=== PATIENT | female | born 1965 | race Caucasian/White ===

== ENCOUNTER → 2017-01-07 14:25 | Outpatient (CLI) | payer OTHER ==
[2016-10-28 14:22] VITALS: BMI 30.4
[~2017-01-07 14:25] MED LIST: BENZONATATE200 MG PO; BROVANA15 MCG/2 M INH; COREG 3.1253.125 MG PO; DIFLUCAN100 MG PO; FLORAJEN3 CAPS460 MG PO; FLUTICASONE PRO16 GM NASAL; HYDROCODONE-APA1 TAB PO; IPRAT-ALBUT 0.5-3 ML INH; LEVAQUIN500 MG PO; LEVAQUIN750 MG PO; LYRICA150 MG PO; LYRICA75 MG PO; MUCINEX D1 TAB.SR . PO; MUCINEX DM ER1 EAC1 PO; NYSTATIN ORAL SU5 ML PO; ONDANSETRON4 MG/2 M3 IV; OXYCONTIN10 MG PO; PEPCID20 MG PO; PHENERGAN25 M1 PO; PREDNISONE10 MG PO; PREDNISONE20 MG PO; PROAIR HFA8.5 GM INH; PROVENTIL HFA6.7 GM INH; PULMICORT0.5 MG/21 UPD; SINGULAIR10 MG PO; SOMA350 MG PO; STERAPRED DS 1210 MG PO; TUSSIONEX PENN473 ML PO; VIBRAMYCIN 100100 MG PO; XANAX1 MG PO; ZPAK PO
== END | disposition home or self-care (01) ==
LOC: D.MAMMO 08:30
DX: N63 Unspecified lump in breast (principal)

== ENCOUNTER 2017-02-25 22:27 | Inpatient (IN) | payer OTHER ==
[~2017-02-25] VITALS: Ht 165.1 cm; Wt 83.0 kg
--- NOTE | ~2017-02-25 | CN ---
PATIENT NAME:JILL LONGORIA MEDICAL RECORD: [id number] : 65 LOCATION:D.[id number] ADMIT DATE: 02/26/17 ACCOUNT: [id number] CONSULTING PHYSICIAN: MARAH LEMA MD REFERRING PHYSICIAN: BETI GREEN MD DATE OF CONSULTATION: 02/26/2017 Consultation Note CONSULT REQUESTING PHYSICIAN: Dr. Beti Green. REASON FOR CONSULTATION: Acute exacerbation of chronic obstructive pulmonary disease, hemoptysis. HISTORY OF PRESENT ILLNESS: Ms. Longoria is a 52-year-old female who has a history of COPD and asthma, IgG deficiency, and kind of sick for the last few days, she was coughing. She was wheezing. She has shortness of breath. The cough is productive with some bloody sputum. She does not have any blood in her sputum since yesterday. Denies any fever and chill. There are no night sweats. REVIEW OF SYSTEMS: Mainly in the history of present illness. PAST MEDICAL HISTORY: 1. Neuropathy. 2. Seizure disorder. 3. Bulging disk, chronic backache. 4. Congestive heart failure. 5. Coronary artery disease. 6. History of syncopal episode. 7. Asthma. 8. Chronic obstructive pulmonary disease. 9. Emphysema. 10. Cervical cancer. PAST SURGICAL HISTORY: Back surgery, , hysterectomy, tube dilated to kidney and bladder. ALLERGIES: SHE IS ALLERGIC TO PENICILLIN, AMPICILLIN, SULFA, TRAMADOL AND TRIMETHOPRIM. MEDICATIONS: On [employer] was reviewed. PERSONAL AND SOCIAL HISTORY: Probably, the patient was still continues to smoke. She is a nondrinker. FAMILY HISTORY: Noncontributory. PHYSICAL EXAMINATION: GENERAL: The patient is now lying comfortably. She is not in acute distress. VITAL SIGNS: The blood pressure 138/80, pulse is 102, respiration is 21, temperature 98.8, SpO2 96% on 2.5 liter nasal cannula. HEENT: Conjunctivae is pink, sclerae nonicteric. NECK: Supple, no JVD. CHEST: The chest excursion is minimal on both sides. There is a prolonged expiration with wheezing. CONSULT REPORT [id number] JILL LONGORIA HEART: Rhythm regular, normal sound, no murmur. ABDOMEN: Soft, bowel sounds present. No hepatosplenomegaly. RECTAL: Deferred. EXTREMITIES: No cyanosis, no clubbing, no pedal edema. SKIN: The skin is warm, normal turgor. CENTRAL NERVOUS SYSTEM: The patient is awake and alert. There are no obvious cranial nerve abnormality. The gait was not tested. CHEST RADIOGRAPH: There are no acute infiltrate. OTHER LABORATORY DATA: CBC: WBC 3.5, hemoglobin 13.6, hematocrit 41.9, the platelet count is 148. Chemistry: Sodium 143, potassium 3.4, BUN is 11, creatinine 0.5. IMPRESSION: 1. Acute exacerbation of chronic obstructive pulmonary disease. 2. COPD-asthma overlap syndrome. 3. History of IgG deficiency. 4. Tracheobronchitis. 5. Hemoptysis, most likely secondary to tracheobronchitis. 6. Seizure disorder. 7. History of congestive heart failure and coronary artery disease. 8. Tobacco dependence syndrome. RECOMMENDATION: We will start her on Levaquin, methylprednisolone IV, albuterol/ipratropium nebulizer, Brovana and budesonide nebulizer. Continue Singulair, racemic neb p.r.n. Check ANCA and anti-GBM. Followup chest radiograph and labs in the morning. Dr. Green, once again thanks for involving me in the care on Ms. Longoria. TRANSINT:[id number] Voice Confirmation ID: [id number] DOCUMENT ID: [id number] MARAH LEMA MD CC: BETI GREEN MD [id number] DICTATION DATE: 02/26/175 COUNTER ROLLER: 02/27/17 0115 ADM IN [facility] [address] [place] [address]
[~2017-02-25 22:27] MED LIST changes: -LEVAQUIN750 MG PO
[2017-02-25 23:53] LABS: BASOPHILS 0.4 % (0-2); EOSINOPHILS 1.9 % (0-7); HEMATOCRIT 41.8 % (36.0-48.0); HEMOGLOBIN 13.5 g/dL (12-16); IMMATURE GRANULOCYTES 0.2 % (0-5); LYMPHOCYTES 22.9 % (15-50); MCH 29.6 pg (26.0-34.0); MCHC 32.3 g/dL (31.0-37.0); MCV 91.7 fL (80.0-100.0); MEAN PLATELET VOLUME 12.2 fL (7.4-10.4); MONOCYTES 9.6 % (2-11); RBC 4.56 10x6/uL (4.00-5.40); RDW 12.6 % (11.5-14.5); WBC 5.3 10x3/uL (4.8-10.8)
[2017-02-25 23:59] LABS: PLATELET COUNT 155 10x3/uL (130-400)
[2017-02-26] VITALS (7 sets, daily range): BP systolic 110–138; BP diastolic 60–80; Ht 165.1 cm; Wt 83.0 kg
[2017-02-26 00:10] LABS: ALBUMIN 3.2 g/dL (3.4-5.0); ALKALINE PHOSPHATASE 144 U/L (46-116); ALT (SGPT) 18 U/L (10-68); BILIRUBIN - TOTAL 0.24 mg/dL (0.2-1.3); CALC OSMOLALITY 283 mosm/kg (275-300); CALCIUM 9.2 mg/dL (8.5-10.1); CARBON DIOXIDE 33.3 mmol/L (21.0-32.0); CHLORIDE - SERUM 104 mmol/L (98-107); CREATININE - SERUM 0.5 mg/dL (0.6-1.3); POTASSIUM - SERUM 3.4 mmol/L (3.5-5.1); PROTEIN - SERUM 6.4 g/dL (6.4-8.2); SODIUM 143 mmol/L (136-145); UREA NITROGEN 11 mg/dL (7-18); eGFR NON AFRICAN AMERICAN > 90 mL/min (90-120)
[2017-02-26 00:11] LABS: GLUCOSE 94 mg/dL (74-106)
[2017-02-26 02:08] LABS: APPEARANCE CLEAR (CLEAR); BILIRUBIN NEGATIVE (NEGATIVE); COLOR YELLOW (YELLOW); GLUCOSE NEGATIVE (NEGATIVE); KETONE NEGATIVE (NEGATIVE); LEUKOCYTE ESTERASE NEGATIVE (NEGATIVE); NITRITE NEGATIVE (NEGATIVE); PROTEIN NEGATIVE (NEGATIVE); SPECIFIC GRAVITY 1.015 (1.005-1.020); UROBILINOGEN NORMAL (NORMAL)
[2017-02-26 02:11] LABS: UDS - AMPHET NEGATIVE QUAL (NEGATIVE); UDS - BARB NEGATIVE QUAL (NEGATIVE); UDS - BENZO POSITIVE QUAL (NEGATIVE); UDS - COCAINE NEGATIVE QUAL (NEGATIVE); UDS - METH NEGATIVE QUAL (NEGATIVE); UDS - OPIATE POSITIVE QUAL (NEGATIVE); UDS - PCP NEGATIVE QUAL (NEGATIVE); UDS - THC NEGATIVE QUAL (NEGATIVE)
[2017-02-26] MEDS ORDERED: PHENERGAN25 M1 PO (02:52)
[2017-02-26 07:34] LABS: BASOPHILS 0.3 % (0-2); EOSINOPHILS 0 % (0-7); HEMATOCRIT 41.9 % (36.0-48.0); HEMOGLOBIN 13.6 g/dL (12-16); IMMATURE GRANULOCYTES 0.3 % (0-5); LYMPHOCYTES 8.8 % (15-50); MCH 29.6 pg (26.0-34.0); MCHC 32.5 g/dL (31.0-37.0); MCV 91.3 fL (80.0-100.0); MEAN PLATELET VOLUME 12.5 fL (7.4-10.4); MONOCYTES 0.9 % (2-11); NEUTROPHILS 89.7 % (40-80); PLATELET COUNT 148 10x3/uL (130-400); RBC 4.59 10x6/uL (4.00-5.40); RDW 12.6 % (11.5-14.5)
[2017-02-26 07:47] LABS: MAGNESIUM - SERUM 1.8 mg/dL (1.8-2.4); PHOSPHOROUS 3.5 mg/dL (2.5-4.9)
[2017-02-26 07:56] LABS: WBC 3.5 10x3/uL (4.8-10.8)
--- NOTE | 2017-02-27 00:59 | NUR ---
2000)REC'D.IN BED TALKING ON PHONE UPSET BECAUSE WOULDN'T CHGE.PAIN MED BACK TO EVERY 4HRS. INSTEAD OF EVERY 4HR.C/O CHRONIC BACK PAIN.WILL CONTINUE TO MONITOR FOR ANY CHGES. AND FOLLOW CURRENT PLAN OF CARE.
[2017-02-27 04:00] VITALS: BP 122/70
--- NOTE | 2017-02-27 05:35 | NUR ---
PATIENT RESTING IN BED WITH EYES CLOSED. NO VISIBLE SIGNS OF DISTRESS. BED IN LOWEST POSITION AND CALL LIGHT WITHIN REACH.
[2017-02-27 05:50] LABS: BASOPHILS 0.2 % (0-2); EOSINOPHILS 0 % (0-7); HEMATOCRIT 39.3 % (36.0-48.0); HEMOGLOBIN 12.6 g/dL (12-16); IMMATURE GRANULOCYTES 0.2 % (0-5); LYMPHOCYTES 11.4 % (15-50); MCH 29.6 pg (26.0-34.0); MCHC 32.1 g/dL (31.0-37.0); MCV 92.5 fL (80.0-100.0); MEAN PLATELET VOLUME 12.4 fL (7.4-10.4); NEUTROPHILS 82.2 % (40-80); PLATELET COUNT 148 10x3/uL (130-400); RBC 4.25 10x6/uL (4.00-5.40); RDW 12.8 % (11.5-14.5); WBC 4.1 10x3/uL (4.8-10.8)
[2017-02-27 06:43] LABS: ALKALINE PHOSPHATASE 140 U/L (46-116); BILIRUBIN - TOTAL 0.11 mg/dL (0.2-1.3); CALCIUM 8.6 mg/dL (8.5-10.1); CARBON DIOXIDE 32.1 mmol/L (21.0-32.0); CHLORIDE - SERUM 106 mmol/L (98-107); CREATININE - SERUM 0.6 mg/dL (0.6-1.3); PROTEIN - SERUM 6.1 g/dL (6.4-8.2); SODIUM 143 mmol/L (136-145); eGFR NON AFRICAN AMERICAN > 90 mL/min (90-120)
[2017-02-27 06:44] LABS: ALT (SGPT) 58 U/L (10-68); CALC OSMOLALITY 288 mosm/kg (275-300); GLUCOSE 154 mg/dL (74-106); POTASSIUM - SERUM 4.3 mmol/L (3.5-5.1); UREA NITROGEN 14 mg/dL (7-18)
--- NOTE | 2017-02-27 07:56 | NUR ---
PATIENT STATED "I FEEL WORSE THEN I DID WHEN I CAME IN?" I STATED "WHAT DO YOU MEAN? ARE YOU FEELING MORE SHORT OF BREATH OR WHAT?" SHE STATED "MY LUNGS HURT WORSE. THE DOCTOR TOLD ME HE WAS GOING TO CHANGE MY PAIN MEDICATION TO EVERY 4 HOURS LIKE I TAKE IT AT HOME, BUT HE CHANGED IT TO EVERY 6 HOURS. BY THE TIME 6 HOURS IS UP MY PAIN IS SO BAD I AM CRYING BY THAT POINT. HE EVEN DISCONTINUED MY XANAX. I CAME HERE TO GET BETTER NOT WORSE." ADMINISTERED NORCO PER ORDER. TOLD PATIENT TO DISCUSS HER CONCERNS WITH THE DOCTOR WHEN HE SEES HER TODAY. PATIENT VERBALIZED UNDERSTANDING AND AGREED. BED IN LOWEST POSITION, CALL LIGHT IN REACH. BED RAILS UP X'S 2. PATIENT IS RECIEVING OXYGEN VIA NASAL CANNULA. NO SIGNS OF DISTRESS NOTED.
[2017-02-27 09:45] VITALS: BP 101/54
[2017-02-27 16:55] VITALS: BP 111/52
[2017-02-27 20:00] VITALS: BP 140/64
--- NOTE | 2017-02-27 20:03 | NUR ---
Received patient up in room, up to bathroom, no voiced complaints at this time. Oxygen on @3L/min via nasal cannula. PIV lower left arm is SL. SCDs off at this time due to patient being out of bed.
--- NOTE | 2017-02-27 21:41 | NUR ---
Given [place] 10-325mg po PRN on request for pain rated 10/10 in back (states had back surgeries in the past), both legs and lungs. States it hurts "so much when I cough". Complaining that her medications were changed especially her analgesics, "I didn't come here for detox, I came here to get better."
[2017-02-28] VITALS: BP 115/62
--- NOTE | 2017-02-28 01:46 | NUR ---
Given [place] tab and Klonopin PRNs for 10/10 pain in same areas as last charting and for anxiety and to aid to get to sleep. As soon as she took these pills she called out complaining that the Klonopin is causing her tongue to itch. Encouraged to drink fluids, swish in her mouth and then swallow, pt to report any increase in symptoms and will monitor for any changes.
--- NOTE | 2017-02-28 02:20 | NUR ---
Spoke to patient and the itchiness of her tongue has subsided. "Maybe I let the klonopin melt in my mouth before I swallowed it."
[2017-02-28 04:00] VITALS: BP 135/63
--- NOTE | 2017-02-28 04:15 | NUR ---
Resting quietly, respirations easy and regular, no furthur tongue itching.
[2017-02-28 06:10] LABS: BASOPHILS 0 % (0-2); EOSINOPHILS 0 % (0-7); HEMATOCRIT 39.4 % (36.0-48.0); HEMOGLOBIN 12.4 g/dL (12-16); IMMATURE GRANULOCYTES 0.5 % (0-5); LYMPHOCYTES 11.9 % (15-50); MCH 29.7 pg (26.0-34.0); MCHC 31.5 g/dL (31.0-37.0); MCV 94.3 fL (80.0-100.0); NEUTROPHILS 82.6 % (40-80); PLATELET COUNT 150 10x3/uL (130-400); RBC 4.18 10x6/uL (4.00-5.40); RDW 12.9 % (11.5-14.5)
[2017-02-28 06:24] LABS: ALKALINE PHOSPHATASE 120 U/L (46-116); CALC OSMOLALITY 284 mosm/kg (275-300); CALCIUM 8.5 mg/dL (8.5-10.1); CARBON DIOXIDE 31.6 mmol/L (21.0-32.0); CHLORIDE - SERUM 106 mmol/L (98-107); CREATININE - SERUM 0.5 mg/dL (0.6-1.3); GLUCOSE 126 mg/dL (74-106); POTASSIUM - SERUM 4.2 mmol/L (3.5-5.1); PROTEIN - SERUM 5.8 g/dL (6.4-8.2); SODIUM 142 mmol/L (136-145); UREA NITROGEN 12 mg/dL (7-18); eGFR NON AFRICAN AMERICAN > 90 mL/min (90-120)
[2017-02-28 06:25] LABS: ALT (SGPT) 42 U/L (10-68); BILIRUBIN - TOTAL 0.05 mg/dL (0.2-1.3)
--- NOTE | 2017-02-28 06:55 | NUR ---
Given [place] tab for pain relief (back,legs,lungs,chest region) as requested.
[2017-02-28 08:31] VITALS: BP 123/60
--- NOTE | 2017-02-28 08:31 | NUR ---
PT ASSESSMENT [id number] PT AWAKE AND ALERT ORINETED X 3 LUNGS TIGHT WITH INSPIRATORY WHEEZING NOTED BSA X 4 QUADS. PT STATES THAT SHE IS " PISSED OFF AT HER MD" BECAUSE I DIDNT GET HERE TO DETOX I WANT MY MEDS
--- NOTE | 2017-02-28 11:14 | NUR ---
PT AOX4 RESP EVEN AND NONLABORED PT HERE FOR HEMOPTOSIS AND PNUEMONIA. IV ANTIBIOTICS AND FLUID TO IV IN LEFT FOREARM THAT IS PATENT AND INTACT PT DENIES PAIN AT THIS TIME. SRX2 CALL LIGHT WITHIN REACH AND BED AT LOWEST POSITION WILL CONTINUE TO MONITOR
[2017-02-28 11:39] VITALS: BP 129/60
--- NOTE | 2017-02-28 12:12 | NUR ---
Patient Name: JILL LONGORIA Admission Status: ER Accout number: [id number] Admission Date: 02-26-2017 : 1965 Admission Diagnosis: Attending: BEKAH Current LOS: 2 Anticipated DC Date: 03-03-2017 Planned Disposition: Home Primary Insurance: Discharge Planning Comments: CM MET WITH PATIENT REGARDING D/C NEEDS AND PLANS. PATIENT STATED SHE LIVES WITH HER SPOUSE (ELDA) AND HE WILL DRIVE HER HOME AT DISCHARGE. PATIENTS SPOUSE STATED SHE HAS 7 STEPS TO ENTER HER HOME AND NO STAIRS INSIDE. PATIENT IS INDEPENDENT WITH HER CARE AND HAS OXYGEN 3L, PORT O2, CANE, SHOWER CHAIR, NEBULIZER, AND WALKER AT HOME. PATIENTS PCP IS DR. HERNANDEZ IN [place] AND USES [facility]. PATIENT DOES NOT WANT HOME HEALTH UNLESS ABSOLUTELY NECESSARY. CM WILL CONTINUE TO FOLLOW PATIENT WITH D/C NEEDS AND PLANS. PCP DR. HERNANDEZ ([place]) [facility]- [phone] ELDA (SPOUSE) [phone] Motorcycle Riding Instructor: Stella Boyle Is the patient Alert and Oriented? Yes 0 * How many steps to enter\exit or inside your home? 5 0 * PCP DR. HERNANDEZ ([place]) 0 * Pharmacy [facility] 0 * Preadmission Environment Home with Family 0 * ADLs Independent 0 * Equipment Cane Nebulizer Oxygen Shower Chair Walker 0 * Other Equipment PORTABLE 02 0 * List name and contact numbers for known caregivers / representatives who currently or will assist patient after discharge: ELDA (SPOUSE) [phone] 0 * Community resources currently utilized None 0 * Additional services required to return to the preadmission environment? Yes 0 * Can the patient safely return to the preadmission environment? Yes 0 * Has this patient been hospitalized within the prior 30 days at any hospital? No 0 Grand Total: 0
--- NOTE | 2017-02-28 13:15 | NUR ---
NUTRITION MONITORING & EVAL CHART REVIEWED, PT VISIT. PT REPORTS GOOD INTAKE MOST MEALS. POOR INTAKE AT LUNCH TODAY SECONDARY NAUSEA. RD FOLLOWING
--- NOTE | 2017-02-28 14:28 | NUR ---
ORDER PER DR PETERS FOR DISCHARGE SPOKE WITH DR SON DISCHARGE OK FROM [facility]. FU SCHEDULED WITH DR GARCIA.
[2017-02-28] MEDS ORDERED: PREDNISONE10 MG PO (15:22)
[2017-02-28] MEDS ORDERED: LEVAQUIN750 MG PO (15:22)
--- NOTE | 2017-02-28 15:59 | NUR ---
SITTING UP IN BED,WITHOUT DISTRESS.CALL LIGHT IN REACH.
--- NOTE | 2017-02-28 16:18 | NUR ---
PT COMPLETEING IV ABT THEN DISCHARGE PER ORDER.
--- NOTE | 2017-02-28 16:50 | NUR ---
CM REASSESSMENT NOTE: PATIENT REF. HOME HEALTH NO OTHER NEEDS. SPOUSE DRIVING HER HOME.
--- NOTE | 2017-02-28 17:53 | NUR ---
PT DISCAHRGED PER ORDER WITH SPOUSE AT THIS TIME.
[2017-03-02 16:15] LABS: ANCA - ANTIMYELOPEROXIDASE <9.0 U/mL (0.0-9.0); ANCA - ANTIPROTEINASE 3 <3.5 U/mL (0.0-3.5); ANCA - ATYPICAL <1:20 titer (Neg:<1:20); ANCA - CYTOPLASMIC <1:20 titer (Neg:<1:20); ANCA - PERINUCLEAR <1:20 titer (Neg:<1:20)
== END 2017-02-28 17:54 | disposition home or self-care (01) | DRG 190 ==
LOC: D.ER 22:27 → D.MS 02-26 01:12
PROVIDERS: Emergency Medicine; Internal Medicine Pulmonary Disease; ADMIT Family Medicine
DX: J44.0 Chronic obstructive pulmonary disease with (acute) lower respiratory infection (principal); J18.9 Pneumonia, unspecified organism; F17.203 Nicotine dependence unspecified, with withdrawal; J44.1 Chronic obstructive pulmonary disease with (acute) exacerbation; F41.9 Anxiety disorder, unspecified; J45.909 Unspecified asthma, uncomplicated; G40.909 Epilepsy, unspecified, not intractable, without status epilepticus; R07.9 Chest pain, unspecified; I50.9 Heart failure, unspecified; M54.9 Dorsalgia, unspecified; R79.89 Other specified abnormal findings of blood chemistry

== ENCOUNTER 2017-03-30 01:02 | Inpatient (IN) | payer OTHER ==
[~2017-03-30] VITALS: Ht 165.1 cm; Wt 84.1 kg
[~2017-03-30 01:02] MED LIST changes: +LEVAQUIN750 MG PO
[2017-03-30 05:00] LABS: BASOPHILS 0.2 % (0-2); EOSINOPHILS 1.5 % (0-7); HEMATOCRIT 39.1 % (36.0-48.0); HEMOGLOBIN 12.6 g/dL (12-16); LYMPHOCYTES 20.7 % (15-50); MCH 29.4 pg (26.0-34.0); MCHC 32.2 g/dL (31.0-37.0); MCV 91.1 fL (80.0-100.0); MEAN PLATELET VOLUME 12.2 fL (7.4-10.4); MONOCYTES 10.3 % (2-11); NEUTROPHILS 67.3 % (40-80); PLATELET COUNT 162 10x3/uL (130-400); RBC 4.29 10x6/uL (4.00-5.40); RDW 12.7 % (11.5-14.5); WBC 5.2 10x3/uL (4.8-10.8)
[2017-03-30 05:37] LABS: ALKALINE PHOSPHATASE 146 U/L (46-116); ALT (SGPT) 30 U/L (10-68); BILIRUBIN - TOTAL 0.31 mg/dL (0.2-1.3); CALC OSMOLALITY 281 mosm/kg (275-300); CALCIUM 9.2 mg/dL (8.5-10.1); CARBON DIOXIDE 34.9 mmol/L (21.0-32.0); CHLORIDE - SERUM 103 mmol/L (98-107); CREATININE - SERUM 0.6 mg/dL (0.6-1.3); GLUCOSE 132 mg/dL (74-106); MAGNESIUM - SERUM 1.7 mg/dL (1.8-2.4); POTASSIUM - SERUM 3.6 mmol/L (3.5-5.1); PROTEIN - SERUM 6.1 g/dL (6.4-8.2); SODIUM 141 mmol/L (136-145); UREA NITROGEN 11 mg/dL (7-18); eGFR NON AFRICAN AMERICAN > 90 mL/min (90-120)
[2017-03-30 15:17] VITALS: BP 121/74; Ht 165.1 cm; Wt 84.1 kg
[2017-03-30 16:08] LABS: CKMB 2.4 U/L (0.0-3.6); CREATINE KINASE 54 UL (21-215)
[2017-03-30 16:09] LABS: TROPONIN-I < 0.017 ng/mL (0.000-0.060)
[2017-03-30 20:15] VITALS: BP 121/67
[2017-03-30 21:24] LABS: CREATINE KINASE 39 UL (21-215)
[2017-03-30 21:31] LABS: TROPONIN-I < 0.017 ng/mL (0.000-0.060)
[2017-03-31] VITALS (7 sets, daily range): BP systolic 99–127; BP diastolic 51–99
[2017-03-31 02:37] LABS: CKMB 1.5 U/L (0.0-3.6); CREATINE KINASE 35 UL (21-215)
[2017-03-31 02:38] LABS: TROPONIN-I < 0.017 ng/mL (0.000-0.060)
[2017-03-31 06:34] LABS: BASOPHILS 0 % (0-2); EOSINOPHILS 0 % (0-7); HEMATOCRIT 39.8 % (36.0-48.0); HEMOGLOBIN 12.9 g/dL (12-16); IMMATURE GRANULOCYTES 0.2 % (0-5); MCH 29.4 pg (26.0-34.0); MCHC 32.4 g/dL (31.0-37.0); MCV 90.7 fL (80.0-100.0); MEAN PLATELET VOLUME 12.6 fL (7.4-10.4); MONOCYTES 3.8 % (2-11); PLATELET COUNT 167 10x3/uL (130-400); RBC 4.39 10x6/uL (4.00-5.40); RDW 12.6 % (11.5-14.5); WBC 4.7 10x3/uL (4.8-10.8)
[2017-03-31 06:59] LABS: ALBUMIN 3.1 g/dL (3.4-5.0); ALKALINE PHOSPHATASE 147 U/L (46-116); ALT (SGPT) 35 U/L (10-68); BILIRUBIN - TOTAL 0.14 mg/dL (0.2-1.3); CALC OSMOLALITY 289 mosm/kg (275-300); CALCIUM 8.9 mg/dL (8.5-10.1); CARBON DIOXIDE 33.9 mmol/L (21.0-32.0); CHLORIDE - SERUM 105 mmol/L (98-107); CREATININE - SERUM 0.6 mg/dL (0.6-1.3); GLUCOSE 146 mg/dL (74-106); POTASSIUM - SERUM 4.1 mmol/L (3.5-5.1); PROTEIN - SERUM 5.9 g/dL (6.4-8.2); SODIUM 144 mmol/L (136-145); UREA NITROGEN 12 mg/dL (7-18); eGFR NON AFRICAN AMERICAN > 90 mL/min (90-120)
[2017-04-01 04:20] VITALS: BP 119/68
[2017-04-01 07:50] VITALS: BP 127/80
[2017-04-01 08:12] LABS: BASOPHILS 0 % (0-2); EOSINOPHILS 0 % (0-7); HEMOGLOBIN 12.3 g/dL (12-16); IMMATURE GRANULOCYTES 0.6 % (0-5); LYMPHOCYTES 11.3 % (15-50); MCH 29.7 pg (26.0-34.0); MCHC 32.4 g/dL (31.0-37.0); MCV 91.8 fL (80.0-100.0); MEAN PLATELET VOLUME 12.3 fL (7.4-10.4); NEUTROPHILS 83.1 % (40-80); PLATELET COUNT 148 10x3/uL (130-400); RBC 4.14 10x6/uL (4.00-5.40); RDW 12.8 % (11.5-14.5)
[2017-04-01 08:14] LABS: WBC 6.8 10x3/uL (4.8-10.8)
[2017-04-01 08:41] LABS: ALKALINE PHOSPHATASE 116 U/L (46-116); ALT (SGPT) 32 U/L (10-68); BILIRUBIN - TOTAL 0.13 mg/dL (0.2-1.3); CALC OSMOLALITY 284 mosm/kg (275-300); CALCIUM 8.5 mg/dL (8.5-10.1); CARBON DIOXIDE 31.5 mmol/L (21.0-32.0); CHLORIDE - SERUM 106 mmol/L (98-107); CREATININE - SERUM 0.6 mg/dL (0.6-1.3); GLUCOSE 145 mg/dL (74-106); POTASSIUM - SERUM 3.6 mmol/L (3.5-5.1); SODIUM 142 mmol/L (136-145); UREA NITROGEN 11 mg/dL (7-18); eGFR NON AFRICAN AMERICAN > 90 mL/min (90-120)
[2017-04-01 14:58] VITALS: BP 109/71
[2017-04-01 19:28] VITALS: BP 137/73
[2017-04-02 00:04] VITALS: BP 126/66
[2017-04-02 04:40] VITALS: BP 127/69
[2017-04-02 06:47] LABS: BASOPHILS 0 % (0-2); EOSINOPHILS 0 % (0-7); HEMATOCRIT 36.8 % (36.0-48.0); HEMOGLOBIN 11.9 g/dL (12-16); IMMATURE GRANULOCYTES 1.6 % (0-5); LYMPHOCYTES 13.5 % (15-50); MCHC 32.3 g/dL (31.0-37.0); MCV 92.7 fL (80.0-100.0); MEAN PLATELET VOLUME 12.3 fL (7.4-10.4); MONOCYTES 4.9 % (2-11); PLATELET COUNT 153 10x3/uL (130-400); RBC 3.97 10x6/uL (4.00-5.40); RDW 12.8 % (11.5-14.5); WBC 5.1 10x3/uL (4.8-10.8)
[2017-04-02 07:01] LABS: ALBUMIN 2.8 g/dL (3.4-5.0); ALKALINE PHOSPHATASE 98 U/L (46-116); ALT (SGPT) 40 U/L (10-68); CALC OSMOLALITY 282 mosm/kg (275-300); CALCIUM 8.2 mg/dL (8.5-10.1); CARBON DIOXIDE 31.9 mmol/L (21.0-32.0); CHLORIDE - SERUM 105 mmol/L (98-107); CREATININE - SERUM 0.6 mg/dL (0.6-1.3); GLUCOSE 135 mg/dL (74-106); PROTEIN - SERUM 5.5 g/dL (6.4-8.2); SODIUM 141 mmol/L (136-145); UREA NITROGEN 13 mg/dL (7-18); eGFR NON AFRICAN AMERICAN > 90 mL/min (90-120)
[2017-04-02 07:02] LABS: POTASSIUM - SERUM 4.4 mmol/L (3.5-5.1)
[2017-04-02 10:10] VITALS: BP 132/76
[2017-04-02 19:20] VITALS: BP 122/68
[2017-04-02 23:27] VITALS: BP 126/88
[2017-04-03 03:29] VITALS: BP 131/74
[2017-04-03 07:38] LABS: BASOPHILS 0 % (0-2); EOSINOPHILS 0 % (0-7); HEMATOCRIT 36.9 % (36.0-48.0); IMMATURE GRANULOCYTES 1.1 % (0-5); LYMPHOCYTES 11.5 % (15-50); MCH 30.1 pg (26.0-34.0); MCHC 32.5 g/dL (31.0-37.0); MCV 92.5 fL (80.0-100.0); MONOCYTES 7.3 % (2-11); NEUTROPHILS 80.1 % (40-80); PLATELET COUNT 154 10x3/uL (130-400); RBC 3.99 10x6/uL (4.00-5.40); RDW 12.9 % (11.5-14.5); WBC 5.5 10x3/uL (4.8-10.8)
[2017-04-03 07:54] LABS: ALBUMIN 2.7 g/dL (3.4-5.0); ALKALINE PHOSPHATASE 100 U/L (46-116); ALT (SGPT) 31 U/L (10-68); BILIRUBIN - TOTAL 0.12 mg/dL (0.2-1.3); CALC OSMOLALITY 283 mosm/kg (275-300); CALCIUM 8.4 mg/dL (8.5-10.1); CARBON DIOXIDE 32.4 mmol/L (21.0-32.0); CHLORIDE - SERUM 106 mmol/L (98-107); CREATININE - SERUM 0.6 mg/dL (0.6-1.3); GLUCOSE 141 mg/dL (74-106); POTASSIUM - SERUM 4.6 mmol/L (3.5-5.1); PROTEIN - SERUM 5.5 g/dL (6.4-8.2); SODIUM 141 mmol/L (136-145); UREA NITROGEN 15 mg/dL (7-18); eGFR NON AFRICAN AMERICAN > 90 mL/min (90-120)
[2017-04-03] MEDS ORDERED: LEVAQUIN500 MG PO (10:19)
[2017-04-03] MEDS ORDERED: DIFLUCAN100 MG PO (10:19)
[2017-04-03] MEDS ORDERED: BROVANA15 MCG/2 M INH (10:19)
[2017-04-03] MEDS ORDERED: PULMICORT0.5 MG/21 UPD (10:20)
[2017-04-03] MEDS ORDERED: TORADOL10 MG PO (10:21)
[2017-04-03] MEDS ORDERED: PREDNISONE20 MG PO (10:21)
== END 2017-04-03 12:03 | disposition home or self-care (01) | DRG 189 ==
LOC: D.ER 01:02 → D.WS 06:43 → OBSVTIME 06:43 → D.WS 06:43
PROVIDERS: Emergency Medicine; ADMIT Family Medicine
DX: J96.22 Acute and chronic respiratory failure with hypercapnia (principal); J18.9 Pneumonia, unspecified organism; J44.0 Chronic obstructive pulmonary disease with (acute) lower respiratory infection; J44.1 Chronic obstructive pulmonary disease with (acute) exacerbation; I50.22 Chronic systolic (congestive) heart failure; F17.203 Nicotine dependence unspecified, with withdrawal; D80.1 Nonfamilial hypogammaglobulinemia; J96.21 Acute and chronic respiratory failure with hypoxia; B37.9 Candidiasis, unspecified; F41.9 Anxiety disorder, unspecified; G62.9 Polyneuropathy, unspecified; I25.2 Old myocardial infarction; Z85.41 Personal history of malignant neoplasm of cervix uteri; G40.909 Epilepsy, unspecified, not intractable, without status epilepticus; I25.10 Atherosclerotic heart disease of native coronary artery without angina pectoris

== ENCOUNTER 2017-04-10 01:59 | Inpatient (IN) | payer OTHER ==
[~2017-04-10] VITALS: Ht 165.1 cm; Wt 87.5 kg
--- NOTE | ~2017-04-10 | CN ---
PATIENT NAME:JILL LONGORIA MEDICAL RECORD: [id number] : 65 LOCATION:D. D.2105 ADMIT DATE: 04/10/17 ACCOUNT: [id number] CONSULTING PHYSICIAN: MARAH LEMA MD REFERRING PHYSICIAN: ANAIS AVILA MD DATE OF CONSULTATION: 04/10/2017 CONSULT REQUESTING PHYSICIAN: Anais Avila MD REASON FOR CONSULTATION: Acute exacerbation of chronic obstructive pulmonary disease. HISTORY OF PRESENT ILLNESS: Ms. Longoria is a 52-year-old female, very well known to us. She has a history of COPD, asthma and IgG deficiency. The patient was just discharged a week ago after having COPD exacerbation and pneumonia, left lower lobe. She went back home and start smoking. She is coughing without any yellow or green color sputum production. She also hears herself wheezing. She has shortness of breath with mild exertion. There is no fever and chill. REVIEW OF SYSTEMS: As in history of present illness. PAST MEDICAL HISTORY: 1. Asthma. 2. Chronic obstructive pulmonary disease. 3. History IgG deficiency. 4. History of seizure disorder. 5. History of neuropathy. 6. Bulging disc, chronic backache. 7. Congestive heart failure. 8. Coronary artery disease. 9. History of syncopal episode in the past. 10. Emphysema. 11. Cervical cancer. PAST SURGICAL HISTORY: 1. Back surgery. 2. . 3. Hysterectomy. ALLERGIES: SHE IS ALLERGIC TO PENICILLIN, AMPICILLIN, SULFA, TRAMADOL AND TRIMETHOPRIM. MEDICATIONS: On [employer] was reviewed. PERSONAL AND SOCIAL HISTORY: The patient is still a current everyday smoker. She is a nondrinker. FAMILY HISTORY: Noncontributory. PHYSICAL EXAMINATION: GENERAL: Now, the patient is lying comfortably at bed. She is not in acute distress. VITAL SIGNS: The blood pressure is 111/70, pulse is 94, respiration is 18, temperature is 98.2, and SpO2 is 98% on 3 liters nasal cannula. CONSULT REPORT [id number] JILL LONGORIA HEENT: Conjunctivae is pink, sclerae nonicteric. NECK: Supple, no JVD. CHEST: Excursion is minimal on both sides. Wheeze on forceful expiration. HEART: Rhythm regular, normal sound, no murmur. ABDOMEN: Soft. Bowel sounds present. No hepatosplenomegaly. RECTAL: Deferred. EXTREMITIES: No cyanosis, no clubbing, no pedal edema. SKIN: Warm, normal turgor. CENTRAL NERVOUS SYSTEM: The patient is awake and alert. There is no obvious cranial nerve abnormality. The gait was not tested. LABORATORY DATA: CBC: WBC 8000, hemoglobin 12.6, hematocrit 40.4, the platelet count 181. Chemistry: Sodium 140, potassium 3.8, BUN is 15, creatinine 0.5, glucose 102. ABG: The pH is 7.40, pCO2 of 54.1, pO2 is 108. IMPRESSION: 1. Acute exacerbation of chronic obstructive pulmonary disease. 2. Possible tracheobronchitis. 3. Tobacco dependence syndrome. 4. History of IgG deficiency. 5. Anxiety. RECOMMENDATION: 1. Methylprednisolone 60 mg IV q.8. 2. Continue doxycycline. 3. Albuterol ipratropium nebulizer q.4 hourly. 4. Singulair 10 mg daily. 5. Brovana, budesonide nebulizer b.i.d. 6. The patient will consult to quit smoking. Nicotine patch. Dr. Avila thank you for involving me in the care of Ms. Longoria. TRANSINT:[id number] Voice Confirmation ID: [id number] DOCUMENT ID: [id number] MARAH LEMA MD CC: ANAIS AVILA MD [id number] DICTATION DATE: 04/10/171433 DRYING ROOM OPERATOR: 04/10/[address] [facility] [address] [place] [address]
--- NOTE | ~2017-04-10 | DS ---
PATIENT:JILL LONGORIA :65 MEDICAL RECORD: [id number] DISCHARGE SUMMARY ADMISSION DATE: 04/12/17 DISCHARGE DATE: 04/14/17 DATE OF ADMISSION: 04/10/2017 DATE OF DISCHARGE: 04/14/2017 ADMITTING DIAGNOSES: Chronic obstructive pulmonary disease exacerbation, nicotine dependence with withdrawal, chronic problem with anxiety, back pain, COPD, emphysema, congestive heart failure, neuropathy, myocardial infarction, cervical cancer, tobacco abuse, hypogammaglobulinemia. HOSPITAL COURSE: This is a lady of Dr. Hernandez in [place] admitted with diagnoses as outlined above. Details are well-outlined in the history of the present illness, H&P. All events, lab procedures, diagnostic testing are well documented in the records. The patient was admitted, appropriate home medicines continued. She was started on pulmonary toilet, nebulized meds, IV steroids, IV antibiotics, nicotine patch, SCDs for DVT prophylaxis, PPI for GI prophylaxis. Pulmonary was consulted. Their recommendations were followed. Overall, she did well. She has improved. She is felt stable for dismissal home today by Dr. Daniel. She will be sent home on a steroid taper that will be 60 mg daily times 3 days, 50 mg daily times 3 days, 40 mg daily times 3 days, 30 mg daily times 3 days, 20 mg daily times 3 days, 10 mg daily times 3 days and then 10 mg daily indefinitely I should say until seen by either Dr. Zee or Dr. Daniel. She is also going home on a Z-Ted. She is afebrile. Vital signs stable. We will have her follow up with Dr. Hernandez in [place] in a week. LABORATORY DATA: White count 9, hemoglobin 12, platelets are 169. Sodium 143, potassium 4.1, chloride 105, CO2 33.6, BUN 17, serum creatinine 0.6, calcium 8.5. Also, going home on some calcium with vitamin D to go along with a prednisone taper. Please refer to her med rec. Blood cultures this admission, no growth at 4 days. DIAGNOSES AT DISCHARGE: Chronic obstructive pulmonary disease exacerbation, nicotine dependence with withdrawal, chronic problem with anxiety, back pain, COPD, emphysema, congestive heart failure, neuropathy, myocardial infarction, cervical cancer, tobacco abuse, hypogammaglobulinemia, ycxel-zl-jaqecqi hypoxemic hypercapnic respiratory failure, improved, asthma overlap syndrome, acute exacerbation of chronic bronchitis. IgG deficiency on IVIG 400 mg/kg IV monthly per Dr. Cisse, gbybl-kf-ayeqdax cough, improved, seizure disorder, neuropathy, chronic pain, history of chronic systolic congestive heart failure with EF of 40%. Chest x-ray 04/13/2017, negative edema, negative infiltrates, history of coronary artery disease, nicotine dependence with withdrawal, gastroesophageal reflux disease, thrush, was treated with nystatin here. Greater than 30 minutes was spent on this discharge. TRANSINT:[id number] Voice Confirmation ID: [id number] DOCUMENT ID: [id number] Dictated By: JOMAR GUEVARA RN I have interviewed/examined the above patient and agree with these documented findings. DISCHARGE SUMMARY REPORT [id number] JAELR,ISHAN PEDRAZA MD CC: MARAH ZEE MD, CANDI DANIEL MD and MIGUEL A HERNANDEZ MD [id number] DICTATION DATE: 04/14/17 1315 TERRAZZO WORKER HELPER: 04/15/17 0757 DIS IN 04/14/17 [place] [id number] [place] [address]
[~2017-04-10 01:59] MED LIST changes: +TORADOL10 MG PO
[2017-04-10 03:00] LABS: BASOPHILS 0 % (0-2); EOSINOPHILS 0.1 % (0-7); HEMATOCRIT 40.4 % (36.0-48.0); HEMOGLOBIN 12.6 g/dL (12-16); IMMATURE GRANULOCYTES 0.8 % (0-5); LYMPHOCYTES 13.4 % (15-50); MCH 30.1 pg (26.0-34.0); MCHC 31.2 g/dL (31.0-37.0); MCV 96.7 fL (80.0-100.0); MEAN PLATELET VOLUME 11.9 fL (7.4-10.4); MONOCYTES 8.8 % (2-11); NEUTROPHILS 76.9 % (40-80); PLATELET COUNT 181 10x3/uL (130-400); RBC 4.18 10x6/uL (4.00-5.40); RDW 14.1 % (11.5-14.5)
[2017-04-10 03:14] LABS: ALKALINE PHOSPHATASE 88 U/L (46-116); ALT (SGPT) 17 U/L (10-68); BILIRUBIN - TOTAL 0.21 mg/dL (0.2-1.3); CALC OSMOLALITY 279 mosm/kg (275-300); CALCIUM 8.5 mg/dL (8.5-10.1); CARBON DIOXIDE 34.4 mmol/L (21.0-32.0); CHLORIDE - SERUM 104 mmol/L (98-107); CREATININE - SERUM 0.5 mg/dL (0.6-1.3); GLUCOSE 102 mg/dL (74-106); POTASSIUM - SERUM 3.8 mmol/L (3.5-5.1); PROTEIN - SERUM 5.9 g/dL (6.4-8.2); SODIUM 140 mmol/L (136-145); UREA NITROGEN 15 mg/dL (7-18); eGFR NON AFRICAN AMERICAN > 90 mL/min (90-120)
[2017-04-10 04:00] VITALS: BP 126/57
--- NOTE | 2017-04-10 05:57 | NUR ---
RECEIVED FROM ER VIA WC. ALERT/ORIENTED X 4. AMBULATED TO THE BED WITH STEADY GAIT. 0N 02 AT 3L/NC. C/O SHORTNESS OF BREATH. ER NURSE REPORTED SHE DOES DESAT EASILY OFF OF THE 02. 02 SAT AT 96%. IV IN R HAND WITH ZITHROMAX 500 MG INFUSING STARTED IN ER. ORIENTED TO ROOM AND CALL LIGHT. REQUEST CUP OF ICE.
[2017-04-10 06:01] VITALS: BP 126/57
[2017-04-10 08:46] VITALS: BP 110/60
[2017-04-10 12:12] VITALS: BP 111/70
[2017-04-10 16:23] VITALS: BP 127/60
--- NOTE | 2017-04-10 19:34 | NUR ---
RESUMED CARE OF PT, LYING IN BED RESPIRATIONS EVEN AND UNLABORED ON 3LPM VIA NC. UPDRAFT IN PROGRESS. REQUESTS PAIN MEDICATION AND MUCINEX. CALL LIGHT IN REACH. WILL CONTINUE TO MONITOR. SEE NURSE ASSESSMENT.
[2017-04-10 20:00] VITALS: BP 108/66
[2017-04-11] VITALS (7 sets, daily range): BP systolic 98–141; BP diastolic 48–82; Ht 165.1 cm; Wt 87.5 kg
--- NOTE | 2017-04-11 00:52 | NUR ---
LYING IN BED WITH EYES CLOSED, CALL LIGHT IN REACH. WILL CONTINUE TO MONITOR.
--- NOTE | 2017-04-11 03:21 | NUR ---
HYDROCONE GIVEN FOR PAIN 9:10. CALL LIGHT IN REACH. WILL CONTINUE TO MONITOR.
[2017-04-11 05:52] LABS: BASOPHILS 0 % (0-2); EOSINOPHILS 0.1 % (0-7); IMMATURE GRANULOCYTES 0.5 % (0-5); MCH 30.2 pg (26.0-34.0); MCHC 30.8 g/dL (31.0-37.0); MEAN PLATELET VOLUME 11.6 fL (7.4-10.4); MONOCYTES 4.6 % (2-11); NEUTROPHILS 88.8 % (40-80); PLATELET COUNT 180 10x3/uL (130-400); RBC 3.98 10x6/uL (4.00-5.40); RDW 14.2 % (11.5-14.5); WBC 8.6 10x3/uL (4.8-10.8)
--- NOTE | 2017-04-11 06:11 | NUR ---
NO CHANGES FROM PREVIOUS ASSESSMENT, CALL LIGHT IN REACH. WILL CONTINUE TO MONITOR.
[2017-04-11 06:26] LABS: CALC OSMOLALITY 283 mosm/kg (275-300); CALCIUM 8.1 mg/dL (8.5-10.1); CARBON DIOXIDE 30.9 mmol/L (21.0-32.0); CHLORIDE - SERUM 104 mmol/L (98-107); CREATININE - SERUM 0.6 mg/dL (0.6-1.3); GLUCOSE 163 mg/dL (74-106); POTASSIUM - SERUM 4.1 mmol/L (3.5-5.1); SODIUM 140 mmol/L (136-145); UREA NITROGEN 15 mg/dL (7-18); eGFR NON AFRICAN AMERICAN > 90 mL/min (90-120)
--- NOTE | 2017-04-11 12:29 | NUR ---
ALERT AND ORIENTED X4. SHOWER AND LINEN CHANGE COMPLETE. RT HAND IV INFILTRATED. DC RT HAND IV TIP INTACT. DENIES ANY NEEDS. CONTINUE PLAN OF CARE AND SAFETY PRECAUTIONS.
--- NOTE | 2017-04-11 18:10 | NUR ---
ALERT AND ORIENTED X4. SITTING UP IN BED. SOB MANAGED BY OXYGEN THERAPY. RESITE IV 22G LT FA SUCCESSFUL X1 ATTEMPT. INITIALED AND DATED. PAIN MANAGEMENT CONTINUED. DENIES ANY NEED. CONTINUE PLAN OF CARE AND SAFETY PRECAUTIONS. PREPARE SHIFT CHANGE REPORT.
--- NOTE | 2017-04-11 19:50 | NUR ---
PT SIT UP IN BED AND WATCH TV.
--- NOTE | 2017-04-11 23:20 | NUR ---
PT C/O NAUSEA, REPORT TO CHARGE NURSE, CALL DOCTOR, AND ORDER ZOFRAN.
--- NOTE | 2017-04-12 00:05 | NUR ---
PT STATE SHE STOP NAUSEATED, AND SIT UP IN BED AND CONTINUE WATCH TV.
[2017-04-12 03:43] VITALS: BP 100/55
[2017-04-12 04:48] LABS: BASOPHILS 0 % (0-2); EOSINOPHILS 0 % (0-7); HEMATOCRIT 37.6 % (36.0-48.0); HEMOGLOBIN 11.7 g/dL (12-16); IMMATURE GRANULOCYTES 0.6 % (0-5); LYMPHOCYTES 8.4 % (15-50); MCH 30.2 pg (26.0-34.0); MCHC 31.1 g/dL (31.0-37.0); MCV 97.2 fL (80.0-100.0); MEAN PLATELET VOLUME 10.9 fL (7.4-10.4); MONOCYTES 4.6 % (2-11); NEUTROPHILS 86.4 % (40-80); PLATELET COUNT 164 10x3/uL (130-400); RBC 3.87 10x6/uL (4.00-5.40); RDW 14.2 % (11.5-14.5); WBC 8.3 10x3/uL (4.8-10.8)
[2017-04-12 05:14] LABS: CALC OSMOLALITY 285 mosm/kg (275-300); CALCIUM 8.5 mg/dL (8.5-10.1); CHLORIDE - SERUM 105 mmol/L (98-107); CREATININE - SERUM 0.5 mg/dL (0.6-1.3); GLUCOSE 134 mg/dL (74-106); POTASSIUM - SERUM 4.4 mmol/L (3.5-5.1); SODIUM 142 mmol/L (136-145); UREA NITROGEN 14 mg/dL (7-18); eGFR NON AFRICAN AMERICAN > 90 mL/min (90-120)
[2017-04-12 09:24] VITALS: BP 129/59
[2017-04-12 12:20] VITALS: BP 143/74
[2017-04-12 15:32] VITALS: BP 122/65
--- NOTE | 2017-04-12 15:45 | NUR ---
ALERT AND ORIENTED X4. SHOWER AND LINEN CHANGE COMPLETE. PAIN MANAGEMENT CONTINUED FOR CHEST PAIN FROM COUGH. SOB MANAGED WITH OXYGEN THERAPY, UPDRAFTS, AND STEROIDS ORDERED. DENIES ANY NEEDS. CONTINUE PLAN OF CARE. BED LOCKED AND LOW. CALL LIGHT IN REACH. TWO SIDERAILS UP.
--- NOTE | 2017-04-12 20:10 | NUR ---
PT SIT UP IN BED AND WATCH TV.
[2017-04-12 20:20] VITALS: BP 135/76
[2017-04-12 23:52] VITALS: BP 122/62
--- NOTE | 2017-04-13 02:34 | NUR ---
RESP STAFF DO TREATMENT FOR PT.
[2017-04-13 03:53] VITALS: BP 124/70
[2017-04-13 05:20] LABS: BASOPHILS 0 % (0-2); EOSINOPHILS 0 % (0-7); HEMATOCRIT 37.7 % (36.0-48.0); HEMOGLOBIN 11.8 g/dL (12-16); IMMATURE GRANULOCYTES 0.8 % (0-5); LYMPHOCYTES 7.5 % (15-50); MCH 30.6 pg (26.0-34.0); MCHC 31.3 g/dL (31.0-37.0); MCV 97.7 fL (80.0-100.0); MEAN PLATELET VOLUME 11.1 fL (7.4-10.4); MONOCYTES 5.1 % (2-11); NEUTROPHILS 86.6 % (40-80); PLATELET COUNT 170 10x3/uL (130-400); RBC 3.86 10x6/uL (4.00-5.40); RDW 14.4 % (11.5-14.5); WBC 8.9 10x3/uL (4.8-10.8)
[2017-04-13 06:28] LABS: CALC OSMOLALITY 288 mosm/kg (275-300); CALCIUM 8.4 mg/dL (8.5-10.1); CARBON DIOXIDE 32.4 mmol/L (21.0-32.0); CHLORIDE - SERUM 106 mmol/L (98-107); CREATININE - SERUM 0.5 mg/dL (0.6-1.3); GLUCOSE 136 mg/dL (74-106); MAGNESIUM - SERUM 1.9 mg/dL (1.8-2.4); PHOSPHOROUS 3.4 mg/dL (2.5-4.9); SODIUM 143 mmol/L (136-145); eGFR NON AFRICAN AMERICAN > 90 mL/min (90-120)
[2017-04-13 06:30] LABS: UREA NITROGEN 18 mg/dL (7-18)
--- NOTE | 2017-04-13 08:32 | NUR ---
AM ROUNDS - PT APPEARS TO BE SLEEPING WITH EQUAL AND NON LABORED BREATHING. OFF GOING NURSE REPORTS PT REFUSES SCDS. PT IS ON 3L O2 VIA NC. NO NEEDS AT THIS TIME. WILL CONTINUE TO MONITOR
[2017-04-13 16:03] VITALS: BP 135/68
[2017-04-13 20:00] VITALS: BP 126/54
[2017-04-14] VITALS: BP 106/64
--- NOTE | 2017-04-14 03:28 | NUR ---
NURSE ROUNDS 21:30 - PT AWAKE, ALERT, ORIENTED, STATES SHE HAS CONSTANT LUNG PAIN AND BACK PAIN UNRELIEVED WITH PRN HYDROCODONE. PT STATES THE STEROIDS KEEP HER FROM SLEEPING. DENIES ANY OTHER NEEDS. CONTINUE TO MONITOR CLOSELY. BED LOW, CALL LIGHT IN REACH, SIDE RAILS X 2, HOB 35 DEGREES. PT UP AD JOYCE.
[2017-04-14 04:00] VITALS: BP 99/58
[2017-04-14 05:09] LABS: BASOPHILS 0 % (0-2); EOSINOPHILS 0 % (0-7); HEMATOCRIT 39.7 % (36.0-48.0); HEMOGLOBIN 12.4 g/dL (12-16); IMMATURE GRANULOCYTES 0.7 % (0-5); LYMPHOCYTES 5.8 % (15-50); MCH 30.3 pg (26.0-34.0); MCHC 31.2 g/dL (31.0-37.0); MCV 97.1 fL (80.0-100.0); MONOCYTES 4.2 % (2-11); NEUTROPHILS 89.3 % (40-80); PLATELET COUNT 169 10x3/uL (130-400); RBC 4.09 10x6/uL (4.00-5.40); RDW 14.3 % (11.5-14.5); WBC 9.1 10x3/uL (4.8-10.8)
[2017-04-14 05:34] LABS: CALC OSMOLALITY 287 mosm/kg (275-300); CALCIUM 8.5 mg/dL (8.5-10.1); CARBON DIOXIDE 33.6 mmol/L (21.0-32.0); CHLORIDE - SERUM 105 mmol/L (98-107); CREATININE - SERUM 0.6 mg/dL (0.6-1.3); GLUCOSE 124 mg/dL (74-106); POTASSIUM - SERUM 4.1 mmol/L (3.5-5.1); SODIUM 143 mmol/L (136-145); UREA NITROGEN 17 mg/dL (7-18); eGFR NON AFRICAN AMERICAN > 90 mL/min (90-120)
--- NOTE | 2017-04-14 07:38 | NUR ---
AM ROUNDS - PT IN BED AND APPEARS TO BE SLEEPING WITH EQUAL AND NON LABORED BREATHING. 3L O2 VIA NC. IV TO LEFT FA WITH NS AT 30CC/HR. PT IA A&O. PT IS UP AD JOYCE. WILL CONTINUE TO MONITOR
[2017-04-14 08:16] VITALS: BP 125/68
[2017-04-14 11:42] VITALS: BP 132/74
[2017-04-14] MEDS ORDERED: FLORAJEN3 CAPS460 MG PO (12:48)
[2017-04-14] MEDS ORDERED: ZPAK PO (12:49)
[2017-04-14] MEDS ORDERED: PREDNISONE10 MG PO ×4 (12:49→13:07)
[2017-04-14] MEDS ORDERED: CALCIUM 500 + D1 TAB PO (13:09)
--- NOTE | 2017-04-14 14:51 | NUR ---
PROVIDED PT WITH PRN XANAX REQUESTED. D/C PTS L.WRIST PIV WITH CATHETER TIP FULLY INTACT. PT READY TO BE DISCHARGED BUT AWAITING PAPERS. NO FURTHER NEEDS. WILL CTM.
--- NOTE | 2017-04-14 15:13 | NUR ---
Patient Name: JILL LONGORIA Admission Status: ER Accout number: [id number] Admission Date: 04-12-2017 : 1965 Admission Diagnosis: Attending: ЕКАТЕРИНА Current LOS: 2 Anticipated DC Date: 04-14-2017 Planned Disposition: Home Primary Insurance: Discharge Planning Comments: * Is the patient Alert and Oriented? Yes 0 * How many steps to enter\exit or inside your home? 5 0 * PCP DR. HERNANDEZ IN [place] 0 * Pharmacy [facility] 0 * Preadmission Environment Home with Family 0 * ADLs Independent 0 * Equipment Cane Nebulizer Oxygen Shower Chair Walker 0 * Other Equipment HOME AND PORTABLE OXYGEN [employer] MEDICAL EQUIPMENT PROVIDER PREFERENCE 0 * List name and contact numbers for known caregivers / representatives who currently or will assist patient after discharge: ELDA LONGORIA, SPOUSE, 0 * Community resources currently utilized None 0 * Please name any agencies selected above. NONE 0 * Additional services required to return to the preadmission environment? No 0 * Can the patient safely return to the preadmission environment? Yes 0 * Has this patient been hospitalized within the prior 30 days at any hospital? No 0 CM MET WITH PT IN ROOM TO DISCUSS DISCHARGE PLANNING AND NEEDS. PT REPORTS LIVING AT HOME INDEPENDENTLY WITH HER SPOUSE. PT REPORTS HAVING ALL NEEDED MEDICAL EQUIPMENT, CURRENT PROVIDER IS [facility]. [facility]. PT HAS NO OUTSIDE SERVICES ASSISTING IN THE HOME. CM DISCUSSED AVAILABILITY OF HOME HEALTH, REHAB SERVICES AND MEDICAL EQUIPMENT. PT DENIES DISCHARGE NEEDS, REPORTS HOME HEALTH IS NOT USEFUL TO HER. PT REPORTS HER DAUGHTER IS HERE TO PICK HER UP FOR DISCHARGE HOME. Ct Manager: Umesh Pope
--- NOTE | 2017-04-14 15:46 | NUR ---
WRITTEN AND VERBAL D/C INSTRUCTIONS GIVEN TO PT. PT LEFT FLOOR VIA WHEELCHAIR VIA VOLUNTEER. WILL D/C
== END 2017-04-14 15:49 | disposition home or self-care (01) | DRG 189 ==
LOC: OBSVTIME → D.ER 01:59 → D.M2 04:14 → OBSVTIME 04:14 → D.ER 04:14 → D.M2 04:14
PROVIDERS: Emergency Medicine; ADMIT Family Medicine
DX: J96.22 Acute and chronic respiratory failure with hypercapnia (principal); J44.1 Chronic obstructive pulmonary disease with (acute) exacerbation; D80.6 Antibody deficiency with near-normal immunoglobulins or with hyperimmunoglobulinemia; F17.203 Nicotine dependence unspecified, with withdrawal; I50.22 Chronic systolic (congestive) heart failure; J96.21 Acute and chronic respiratory failure with hypoxia; G40.909 Epilepsy, unspecified, not intractable, without status epilepticus; K21.9 Gastro-esophageal reflux disease without esophagitis; B37.9 Candidiasis, unspecified; F41.9 Anxiety disorder, unspecified; G62.9 Polyneuropathy, unspecified; I25.10 Atherosclerotic heart disease of native coronary artery without angina pectoris

== ENCOUNTER 2017-04-20 06:44 | Emergency (ER) | payer OTHER ==
[2017-04-11 11:01] VITALS: BMI 33.2
[~2017-04-20 06:44] MED LIST changes: +CALCIUM 500 + D1 TAB PO
[2017-04-20 07:19] LABS: BASOPHILS 0 % (0-2); EOSINOPHILS 0.5 % (0-7); HEMATOCRIT 43.5 % (36.0-48.0); HEMOGLOBIN 13.4 g/dL (12-16); IMMATURE GRANULOCYTES 0.3 % (0-5); LYMPHOCYTES 10.7 % (15-50); MCH 30.7 pg (26.0-34.0); MCHC 30.8 g/dL (31.0-37.0); MCV 99.8 fL (80.0-100.0); MEAN PLATELET VOLUME 10.9 fL (7.4-10.4); MONOCYTES 7.2 % (2-11); NEUTROPHILS 81.3 % (40-80); PLATELET COUNT 161 10x3/uL (130-400); RBC 4.36 10x6/uL (4.00-5.40); WBC 6.4 10x3/uL (4.8-10.8)
[2017-04-20 07:43] LABS: ALBUMIN 5.4 g/dL (3.4-5.0); ALKALINE PHOSPHATASE 99 U/L (46-116); ALT (SGPT) 34 U/L (10-68); BILIRUBIN - TOTAL 0.46 mg/dL (0.2-1.3); CALC OSMOLALITY 286 mosm/kg (275-300); CALCIUM 8.6 mg/dL (8.5-10.1); CARBON DIOXIDE 32.1 mmol/L (21.0-32.0); CHLORIDE - SERUM 104 mmol/L (98-107); CREATININE - SERUM 0.8 mg/dL (0.6-1.3); GLUCOSE 142 mg/dL (74-106); POTASSIUM - SERUM 4.2 mmol/L (3.5-5.1); PROTEIN - SERUM 5.7 g/dL (6.4-8.2); SODIUM 142 mmol/L (136-145); UREA NITROGEN 19 mg/dL (7-18); eGFR NON AFRICAN AMERICAN 80 mL/min (90-120)
== END 2017-04-20 09:17 | disposition home or self-care (01) ==
LOC: D.ER 06:44
PROVIDERS: Emergency Medicine
DX: R06.02 Shortness of breath (principal); J44.1 Chronic obstructive pulmonary disease with (acute) exacerbation; I50.9 Heart failure, unspecified

== ENCOUNTER 2017-04-25 21:28 | Inpatient (IN) | payer OTHER ==
[~2017-04-25] VITALS: Ht 165.1 cm; Wt 81.2 kg
--- NOTE | 2017-04-26 01:35 | NUR ---
RECEIVED PT FROM ED VIA WC, PT TO ROOM 1223, PT TRANSFERS SELF FROM WC TO BED, INFORMED PT THAT SOMEONE FROM L&D WILL BE IN TO DO THE ADMITTING ASSESSMENT AND HISTORY, PT VERBALIZES UNDERSTANDING, PT PLACED ON 02, PT STATES "I'M ON 3LITERS AT HOME, BUT THE NURSE UP IN THE ER PLACED ME ON 2-2 1/2, I'M NOT SURE WHICH", PT PLACED ON 2 1/2L O2 VIA NC, IV IN RIGHT THUMB INTACT WITH NO REDNESS OR EDEMA INFUSING LEVAQUIN VIA PUMP, PT ORIENTED TO ROOM, BED IN LOW POSITION, SIDE RAILS X 2, CALL LIGHT IN REACH
--- NOTE | 2017-04-26 01:40 | NUR ---
SUSANA LAURENT RN FROM L&D NOTIFIED FOR ADMITTING PT
[2017-04-26 01:47] VITALS: BP 127/81; BMI 29.8
--- NOTE | 2017-04-26 01:47 | NUR ---
SHAWN TOURE RN TO ROOM FOR ADMITTING ASSESSMENT, HISTORY AND MED REC, SEE FLOW SHEETS
--- NOTE | 2017-04-26 02:36 | NUR ---
SALINE LOCK FLUSHED, ADM DILAUDID (DILUTED WITH 5MLS OF NS) SIVP PER MD ORDERS, PT REPORTS NO ALLERGY TO DILAUDID, HAS TAKEN IN THE PAST WITH NO PROBLEMS, SALINE LOCK FLUSHED AFTER ADM OF MEDS, PT REQUESTED AND SERVED H20, DENIES FURTHER NEEDS
[2017-04-26 04:10] VITALS: BP 119/77
--- NOTE | 2017-04-26 04:10 | NUR ---
PT AWAKE, TALKING ON CELL PHONE, PT HANGS UP PHONE, VS OBTAINED, DENIES NEEDS AT THIS TIME
--- NOTE | 2017-04-26 05:46 | NUR ---
PT MACHINE PAN GREASER LIGHT, REQUESTED AND SERVED COFFEE, PT STATES "I'M REALLY STARTING TO HURT A LITTLE MORE AND SOMETIMES DRINKING SOMETHING WARM MAKES ME FEEL A LITTLE BETTER", INFORMED PT THAT I WILL ADM PAIN MED WHEN DUE, PT VERBALIZES UNDERSTANDING, DENIES FURTHER NEEDS
--- NOTE | 2017-04-26 06:44 | NUR ---
SALINE LOCK FLUSHED, ADM DILAUDID, DILUTED, SIVP PER MD ORDERS, SEE EMAR, SALINE LOCK FLUSHED, PT DENIES FURTHER NEEDS
--- NOTE | 2017-04-26 07:15 | NUR ---
SHIFT REPORT TO WILBER HOYOS RN
[2017-04-26 07:30] VITALS: BP 129/91
[2017-04-26 10:34] VITALS: Ht 165.1 cm; Wt 81.2 kg
[2017-04-26 16:38] VITALS: BP 133/75
--- NOTE | 2017-04-26 16:40 | NUR ---
PT SITTING UP IN BED TALKING ON PHONE. VS OBTAINED, SEE FLOWSHEET FOR DOC. PT PROVIDED WITH CUP OF ICE PER REQUEST, DENIES FURTHER NEEDS. SRUx2, CL IN REACH.
--- NOTE | 2017-04-26 17:01 | NUR ---
PATIENT SITTING UP IN HER BED WATCHING TV, DENIES NEEDS AT THIS TIME. MONITORING.
--- NOTE | 2017-04-26 19:05 | NUR ---
PM ROUNDS MADE, INFORMED PT THAT I WILL DO ASSESSMENT WHEN SHE GETS BACK FROM RADIOLOGY, PT VERBALIZES UNDERSTANDING, PT TO RADIOLOGY VIA WC
--- NOTE | 2017-04-26 19:25 | NUR ---
PT BACK FROM RADIOLOGY
[2017-04-26 19:46] VITALS: BP 138/79
--- NOTE | 2017-04-26 19:46 | NUR ---
ASSESSMENT PER FLOW SHEET, VS OBTAINED, SALINE LOCK IN THUMB/HAND INTACT WITH NO REDNESS OR EDEMA, PT C/O BACK AND RIB PAIN, SALINE LOCK FLUSHED, ADM DILUTED DILAUDID SIVP PER MD ORDERS, SALINE LOCK FLUSHED, PT REPORTS FLATUS, LOOSE STOOL TODAY, AND VOIDING BY SELF WITH NO DIFFICULTY, PT DENIES FURTHER NEEDS AT THIS TIME
--- NOTE | 2017-04-26 20:30 | NUR ---
PT WATCHING TV, DENIES NEEDS AT THIS TIME
--- NOTE | 2017-04-26 21:02 | NUR ---
ADM 2100 MEDS PER MD ORDERS, SEE EMAR, PT REQUESTED AND SERVED CUP OF ICE FOR SODA, PT DENIES FURTHER NEEDS
--- NOTE | 2017-04-26 22:03 | NUR ---
RESP TO ROOM FOR TREATMENT
--- NOTE | 2017-04-26 22:28 | NUR ---
PT HAND BOOKBINDER LIGHT, PT C/O SLIGHT NAUSEA, ADM PHENERGAN PO PER MD ORDERS, PT REPORTS TAKING PHENERGAN WITH NO PROBLEMS, PT DENIES FURTHER NEEDS
--- NOTE | 2017-04-27 00:08 | NUR ---
SALINE LOCK CONVERTED TO IV, NS ANNA INFUSING AT 30 ML/HR, LEVAQWALLACE CASTILLO IVPB PER MD ORDERS, SEE EMAR, ADM SOLUMEDROL SIVP OVER 5 MINUTES, PT C/O BACK PAIN, WILL ADM PAIN MED
[2017-04-27 00:26] VITALS: BP 109/72
--- NOTE | 2017-04-27 00:26 | NUR ---
ADM FIDEL LEES PER MD ORDERS, SEE EMAR, PT DENIES FURTHER NEEDS
--- NOTE | 2017-04-27 00:26 | NUR ---
LATE ENTRY: VS OBTAINED
--- NOTE | 2017-04-27 01:30 | NUR ---
PT AWAKE, LOOKING AT CELL PHONE, RATES BACK PAIN 6/10, STATES "IT FEELS A LITTLE BETTER", DENIES NEEDS AT THIS TIME
--- NOTE | 2017-04-27 01:55 | NUR ---
RESP TO ROOM FOR TREATMENT
[2017-04-27 03:24] VITALS: BP 115/69
--- NOTE | 2017-04-27 03:24 | NUR ---
PIV SL, INFUSION COMPLETE. VSS. PT DENIES PAIN OR NEEDS AT THIS TIME. PT UP TO VOID WITHOUT ASSISTANCE. LIGHTS DIMMED, DOOR LEFT OPEN PER PT REQUEST.
--- NOTE | 2017-04-27 05:14 | NUR ---
PT AWAKE, C/O BACK PAIN, SALINE LOCK FLUSHED WITH 5MLS OF NS WITH NO DIFFICULTY, ADM DILAUDID DILUTED IN 5 MLS OF NS, SALINE LOCK FLUSHED WITH 5 MLS OF NS, PT DENIES FURTHER NEEDS
--- NOTE | 2017-04-27 05:45 | NUR ---
PT CITY PLANT SUPERVISOR LIGHT, REQUESTED COFFEE, INFORMED PT THAT I WILL MAKE SOME AND BRING IT TO HER, PT VERBALIZES UNDERSTANDING
--- NOTE | 2017-04-27 06:00 | NUR ---
PT SERVED COFFEE WITH CREAMER AND SUGAR, PT INFORMED COFFEE VERY HOT, PT VERBALIZES UNDERSTANDING, DENIES FURHTER NEEDS
--- NOTE | 2017-04-27 07:00 | NUR ---
SHIFT REPORT TO WILBER HOYOS RN
[2017-04-27 07:26] LABS: BASOPHILS 0 % (0-2); EOSINOPHILS 0 % (0-7); HEMATOCRIT 44.9 % (36.0-48.0); IMMATURE GRANULOCYTES 0.3 % (0-5); LYMPHOCYTES 8.6 % (15-50); MCH 30.8 pg (26.0-34.0); MCHC 31.2 g/dL (31.0-37.0); MCV 98.9 fL (80.0-100.0); MONOCYTES 6.2 % (2-11); NEUTROPHILS 84.9 % (40-80); PLATELET COUNT 154 10x3/uL (130-400); RBC 4.54 10x6/uL (4.00-5.40); RDW 14.8 % (11.5-14.5)
[2017-04-27 07:50] LABS: CALC OSMOLALITY 283 mosm/kg (275-300); CALCIUM 8.7 mg/dL (8.5-10.1); CARBON DIOXIDE 31.2 mmol/L (21.0-32.0); CHLORIDE - SERUM 102 mmol/L (98-107); CREATININE - SERUM 0.7 mg/dL (0.6-1.3); GLUCOSE 163 mg/dL (74-106); POTASSIUM - SERUM 3.9 mmol/L (3.5-5.1); SODIUM 139 mmol/L (136-145); UREA NITROGEN 17 mg/dL (7-18); eGFR NON AFRICAN AMERICAN > 90 mL/min (90-120)
[2017-04-27 08:45] VITALS: BP 118/83
--- NOTE | 2017-04-27 10:44 | NUR ---
PATIENT RESTING QUIETLY WITHOUT COMPLAINTS. NO NEEDS NOTED. WITHOUT SIGNS OF RESPIRATORY DISTRESS.
--- NOTE | 2017-04-27 11:01 | NUR ---
PATIENT UP TOT HE SHOWER. AT THE [facility]. SHE HAS CONSULTED WITH NUCULAR MED ABOUT THE BONE SCAN PROCEDURE AND VOICES UNDERSTANDING OR PROCESS AND EXPECTED KNOWLEDGE TO BE GAINED.
--- NOTE | 2017-04-27 12:22 | NUR ---
PATIENT'S IV DRESSING WAS LOOSE SO I REMOVED IT AND REDRESSED THE SL INSERTION SITE. IT FLUSHES EASILY AND [facility] WAS ABLE TO USE IT TO GIVE THE BONE TRACERS. CURRENTLY WE ARE WAITING FOR TUSSIONEX TO COME FROM THE PHARMACY. SHE HAS C/O UNRELIEVED PAIN SINCE SHWER.
--- NOTE | 2017-04-27 14:28 | NUR ---
SMALL AMT OF BLEEDING NOTED FROM THE IV INSERTION SITE. REMOVED THE CATHETER FULLY INTACT. SHE DENIED OTHER NEEDS AT THIS TIME.
--- NOTE | 2017-04-27 14:59 | NUR ---
* Is the patient Alert and Oriented? Yes 0 * How many steps to enter\exit or inside your home? 3 0 * PCP Dr. Ryan 0 * Pharmacy [place] 0 * Preadmission Environment Home with Family 0 * ADLs Partial Dependent 0 * Partial ADLs (Assistance needed) Ambulation 0 * Equipment Nebulizer Oxygen Rolling Walker Shower Chair 0 * List name and contact numbers for known caregivers / representatives who currently or will assist patient after discharge: Spouse - Fracisco [phone] 0 * Additional services required to return to the preadmission environment? Yes 0 * Can the patient safely return to the preadmission environment? Yes 0 * Has this patient been hospitalized within the prior 30 days at any hospital? Yes 04/27/2017 15:00 DCP: Discharge Planning Patient Name: JILL LONGORIA Admission Status: ER Accout number: [id number] Admission Date: 04-25-2017 : 1965 Admission Diagnosis: Attending: BEKAH Current LOS: 2 Anticipated DC Date: 04-29-2017 Planned Disposition: Home with Home Health Primary Insurance: [employer]ar[employer] Discharge Planning Comments: CM met with patient to assess dc plans/needs. Patient states she lives at home with her , Fracisco. She reports she is fairly independent with ADL's but has to use a shower chair for bathing & a rolling walker for ambulating. She has had home health services in the past with [facility]. Discussed HH referral at discharge - she is agreeable but wants to use a different agency. List provided. ULISES signed for [facility]. CM will follow. Solar Panel Installation Supervisor: Sia Jean
--- NOTE | 2017-04-27 17:05 | NUR ---
I STARTED ON THE SECOND ATTEMPT TO THE RIGHT FOREARM.
[2017-04-27 20:00] VITALS: BP 129/84
--- NOTE | 2017-04-27 20:00 | NUR ---
AWAKE DURING INITIAL ROUNDS. INTRODUCED SELF. V/S TAKEN. ASSESSMENT DONE. STATUS COPD. WITH CONTINUOUS O2 @ 3L/NC. O2 SAT 97-100%. COUGHING ON AND OFF. PT STATES SHE HAS Fx RIBS FROM "COUGHING." SALINE LOCK TO R FA INTACT.
--- NOTE | 2017-04-27 20:15 | NUR ---
CALL LIGHT ANSWERED. NEEDS "BREATHING Tx." RESPIRATORY THERAPY "PAGED."
--- NOTE | 2017-04-27 20:50 | NUR ---
CALLED [facility] AND SPOKE WITH RT AND INFORMED HER PT NEEDED "BREATHING Tx."
--- NOTE | 2017-04-27 21:00 | NUR ---
RT HERE TO GIVE BREATHING TREATMENT.
--- NOTE | 2017-04-27 21:09 | NUR ---
HS MEDS GIVEN. SEE E-MAR.
--- NOTE | 2017-04-27 22:00 | NUR ---
PAIN LEVEL "9"/10 FROM "RIB" AREA. DILAUDID 1mg IVP GIVEN FOR PAIN MANAGEMENT.
--- NOTE | 2017-04-27 23:04 | NUR ---
SOLUMEDROL 60mg SLOW IVP GIVEN. LEVAQUIN 750mg IVPB STARTED. SEE E-MAR NO ADVERSE REACTION NOTED. V/S STABLE.
[2017-04-27 23:23] VITALS: BP 132/79
--- NOTE | 2017-04-27 23:36 | NUR ---
RT HERE TO GIVE BREATHING TREATMENT.
--- NOTE | 2017-04-28 02:07 | NUR ---
CALL LIGHT ANSWERED. PAIN LEVEL 8/10 FROM RIB AREA FROM COUGHING. DILAUDID 1mg IVP GIVEN. SEE E-MAR.
--- NOTE | 2017-04-28 05:15 | NUR ---
RT HERE TO GIVE BREATHING THREATMENT.
--- NOTE | 2017-04-28 06:05 | NUR ---
RT HERE TO GIVE BREATHING TREATMENT. PAIN LEVEL "8"/10 FROM "RIB" AREA. DILAUDID 1mg IVP GIVEN. SEE E-MAR.
--- NOTE | 2017-04-28 06:15 | NUR ---
SLEPT FAIRLY DURING THE NIGHT. CONTINUING PLAN OF CARE. INSPECTOR SCALES HERE TO DRAW AM LAB.
[2017-04-28 06:19] LABS: BASOPHILS 0 % (0-2); EOSINOPHILS 0 % (0-7); HEMATOCRIT 43.3 % (36.0-48.0); IMMATURE GRANULOCYTES 0.3 % (0-5); MCH 31.5 pg (26.0-34.0); MCHC 32.3 g/dL (31.0-37.0); MCV 97.3 fL (80.0-100.0); MEAN PLATELET VOLUME 10.2 fL (7.4-10.4); NEUTROPHILS 85.7 % (40-80); PLATELET COUNT 153 10x3/uL (130-400); RBC 4.45 10x6/uL (4.00-5.40); RDW 14.5 % (11.5-14.5); WBC 6.8 10x3/uL (4.8-10.8)
[2017-04-28 06:47] LABS: CALC OSMOLALITY 281 mosm/kg (275-300); CARBON DIOXIDE 31.1 mmol/L (21.0-32.0); CHLORIDE - SERUM 102 mmol/L (98-107); CREATININE - SERUM 0.6 mg/dL (0.6-1.3); GLUCOSE 124 mg/dL (74-106); POTASSIUM - SERUM 4.3 mmol/L (3.5-5.1); SODIUM 140 mmol/L (136-145); UREA NITROGEN 18 mg/dL (7-18); eGFR NON AFRICAN AMERICAN > 90 mL/min (90-120)
[2017-04-28 07:40] VITALS: BP 110/70
--- NOTE | 2017-04-28 09:00 | NUR ---
0900 MEDS GIVEN. PT REQUESTED TUSSINEX ALSO. ALL WERE GIVEN. PT OFFERS NO COMPLAINTS AT THIS TIME.
--- NOTE | 2017-04-28 11:39 | NUR ---
PT IS RESTING IN BED LOOKING AT PHONE. RATES HER PAIN A 6 NOW. PT WAS INSTRUCTED AGAIN ON COLLECTING STOOL SPECIMEN.
--- NOTE | 2017-04-28 11:58 | NUR ---
PT UP TO AMBULTATE. NOW BACK TO BED TO EAT LUNCH. SHE OFFERS NO COMPLAINTS. BED IS LOW, SIDE RAILS UP X 2 AND CALL LIGHT IN REACH. SALINE LOCK INTACT R WRIST. PATENT.
--- NOTE | 2017-04-28 13:28 | NUR ---
PT IS SLEEPING. RESTING WELL. BED IS LOW, SIDE RAILS UP X 2 AND CALL LIGHT IN REACH.
--- NOTE | 2017-04-28 13:51 | NUR ---
PT REQUESTED PAIN MEDICATION. DILAUDID 1 MG GIVEN IV. SALINE LOCK FLUSHED WITH SALINE. PT STAES HER PAIN IS A 8 IN HER BACK. SHE IS AWAKE AND ALERT.
--- NOTE | 2017-04-28 14:47 | NUR ---
PT IS SLEEPING IN BED. BED IS LOW, SIDE RAILS UP X 2 AND CALL LIGHT IN REACH.
--- NOTE | 2017-04-28 18:15 | NUR ---
PT REQUESTED PAIN MED. DILAUDID GIVEN IV R WRIST. SALINE LOCK PATENT R WRIST. PT STATES PAIN IS AN 8. O2 VIA NASAL CANNULA 3 L.
[2017-04-28 19:35] VITALS: BP 121/72
--- NOTE | 2017-04-28 19:35 | NUR ---
PT RECEIVED SITTING UP IN BED WATCHING TV AT THIS TIME AAOX3. S/L NOTED TO RIGHT FOREARM. DRESSING CDI. HEART RRR. LUNGS- INSPIRATORY WHEEZES NOTED TO RIGHT UPPER LOBE. BOWEL SOUNDS ACTIVE X4 QUADRENTS, ABDOMEN SOFT, NON-TENDER. PEDAL PULSES EQUAL BILATERALLY. PT RATES PAIN 7/10 AT THIS TIME. PT DENIES NEEDS. BED LOW. PHONE AND CALL LIGHT IN REACH. SRX2.
--- NOTE | 2017-04-28 20:44 | NUR ---
PM MEDS GIVEN AT THIS TIME. PT DENIES NEEDS. BED LOW. PHONE AND CALL LIGHT IN REACH. SRX2.
--- NOTE | 2017-04-28 21:08 | NUR ---
PT RECEIVING BREATHING TREATMENT AT THIS TIME. DENIES NEEDS. BED LOW. PHONE AND CALL LIGHT IN REACH. SRX2.
--- NOTE | 2017-04-28 22:00 | NUR ---
DILAUDID IVP ADMINISTERED AT THIS TIME PER PT REQUEST FOR PAIN PT RATES 06/16. PT DENIES OTHER NEEDS. BED LOW. PHONE AND CALL LIGHT IN REACH. SRX2.
[2017-04-29] VITALS: BP 134/69
--- NOTE | 2017-04-29 | NUR ---
PT SITTING UP IN BED WATCHING TV AT THIS TIME. DENIES NEEDS. BED LOW. PHONE AND CALL LIGHT IN REACH. SRX2.
--- NOTE | 2017-04-29 02:15 | NUR ---
PT SITTING UP IN BED WATCHING TV AT THIS TIME. REQUESTS MEDICATION FOR PAIN 06/16. NOTICED DILAUDID IVP HAD BEEN D/C'D. CALL PLACED TO LELIA SALCIDO. WAITING FOR CALL BACK AT THIS TIME. PT DENIES OTHER NEEDS. BED LOW. PHONE AND CALL LIGHT IN REACH. SRX2.
--- NOTE | 2017-04-29 03:05 | NUR ---
STILL HAVE NOT RECEIVED CALL BACK FROM LELIA SALCIDO. HAD JOMAR PAGED AGAIN AT THIS TIME.
--- NOTE | 2017-04-29 03:49 | NUR ---
PT. REQUESTED MED FOR ANXIETY UNTIL PAIN MED ORDER CAN BE SECURED. EXPLAINED TO PT. THAT ON-CALL SOURCE FOR HER PHYSICIAN HAS BEEN ATTEMPTED X2 AND WILL KEEP TRYING. PT. STATES UNDERSTANDING. STATES SHE ADMITTED HOSPITAL TAKING [place]. EXPLAINED THAT WE COULD ONLY ADMINISTER WHAT THERE IS AN ORDER FOR. PT. STATES UNDERSTANDING.
--- NOTE | 2017-04-29 04:15 | NUR ---
PT SITTING UP IN BED ON PHONE AT THIS TIME. NO NEEDS NOTED. BED LOW. PHONE AND CALL LIGHT IN REACH. SRX2.
--- NOTE | 2017-04-29 05:11 | NUR ---
PT RESTING QUIETLY AT THIS TIME WITH EYES CLOSED. RESPIRATIONS EVEN, NON-LABORED. NO ACUTE DISTRESS NOTED AT THIS TIME. BED LOW. PHONE AND CALL LIGHT IN REACH. SRX2. CALL PLACED AT THIS TIME AGAIN TO HAVE LELIA SALCIDO PAGED AGAIN CONCERNING PT IV DILAUDID BEING D/C'D.
--- NOTE | 2017-04-29 05:29 | NUR ---
SPOKE WITH LELIA SALCIDO AT THIS TIME. SHE STATES TO RENEW IV DILAUDID ORDER AT THIS TIME.
--- NOTE | 2017-04-29 05:45 | NUR ---
ADMINISTERED DILAUDID IVP AT THIS TIME. PT DENIES OTHER NEEDS. BED LOW. PHONE AND CALL LIGHT IN REACH. SRX2.
[2017-04-29 05:46] VITALS: BP 133/73
--- NOTE | 2017-04-29 06:10 | NUR ---
PT RESTING QUIETLY AT THIS TIME WITH EYES CLOSED. RESPIRATIONS EVEN, NON-LABORED. NO ACUTE DISTRESS NOTED AT THIS TIME. BED LOW. PHONE AND CALL LIGHT IN REACH. SRX2.
[2017-04-29 06:50] LABS: BASOPHILS 0 % (0-2); EOSINOPHILS 0.2 % (0-7); HEMATOCRIT 42.3 % (36.0-48.0); HEMOGLOBIN 13.4 g/dL (12-16); IMMATURE GRANULOCYTES 0.2 % (0-5); LYMPHOCYTES 14.5 % (15-50); MCH 30.9 pg (26.0-34.0); MCHC 31.7 g/dL (31.0-37.0); MCV 97.5 fL (80.0-100.0); MEAN PLATELET VOLUME 10.3 fL (7.4-10.4); MONOCYTES 9.3 % (2-11); NEUTROPHILS 75.8 % (40-80); PLATELET COUNT 125 10x3/uL (130-400); RBC 4.34 10x6/uL (4.00-5.40); RDW 14.3 % (11.5-14.5); WBC 5.2 10x3/uL (4.8-10.8)
[2017-04-29 07:03] LABS: CALC OSMOLALITY 279 mosm/kg (275-300); CALCIUM 8.3 mg/dL (8.5-10.1); CARBON DIOXIDE 33.2 mmol/L (21.0-32.0); CHLORIDE - SERUM 102 mmol/L (98-107); CREATININE - SERUM 0.6 mg/dL (0.6-1.3); GLUCOSE 115 mg/dL (74-106); POTASSIUM - SERUM 3.9 mmol/L (3.5-5.1); SODIUM 140 mmol/L (136-145); eGFR NON AFRICAN AMERICAN > 90 mL/min (90-120)
[2017-04-29 07:07] LABS: UREA NITROGEN 13 mg/dL (7-18)
--- NOTE | 2017-04-29 08:30 | NUR ---
PATIENT IS SITTING UP AT THE BEDISDE. NO NEEDS VOICED.
--- NOTE | 2017-04-29 09:35 | NUR ---
PATIENT TOOK ALL MEDICATIONS WITHOUT C/O PAIN. REQUESTED HER DILAUDID IV FOR C/O PLEURITIC PAIN, EXACERBATED BY COUGHS. GIVEN. NO OTHER NEEDS NOTED AT THIS TIME.
[2017-04-29 09:49] VITALS: BP 124/86
--- NOTE | 2017-04-29 11:00 | NUR ---
PATIENT REQUESTED TUSSIONEX. SHE STATES THAT IT SEEMS THIS IS HELPING TO BREAK UP THE OBSTRUCTIONS IN HER LUNGS.
--- NOTE | 2017-04-29 14:35 | NUR ---
DYNAMOMETER TUNER HERE TO ASSESS PATIENT. SHE IS WITHOUT NEEDS AT THIS TIME.
--- NOTE | 2017-04-29 15:30 | NUR ---
TORADOL REFUSE BY THE PATIENT. SHE STATES THAT DURING HER LAST ADMISSION SHE WAS GIVEN THIS AND IT CAUSED HER TO BRUISE AND HAVE DIFFICULTY URINATING. CALL PLACED TO NONI PEDRAZA. NEW ORDERS RECEIVED.
--- NOTE | 2017-04-29 18:17 | NUR ---
RECEIVED TO ROOM VIA WHEELCHAIR AND PORTABLE O2 WITH HUMM. SALINE LOCK SEEN TO RIGHT WRIST. BILATERAL LIGHT WHEEZES HEARD THROUGHOUT LUNG PEREZ. REQUESTING FAN, WILL GET THE ONE FROM PREVIOUS ROOM OR FIND ONE FOR HER. DENIES ANY OTHER NEEDS.
[2017-04-29 19:00] VITALS: BP 154/92
--- NOTE | 2017-04-29 19:40 | NUR ---
PT RECEIVED SITTING UP IN BED WATCHING TV AT THIS TIME AAOX3. RATES PAIN 7/10. ASSESSMENT COMPLETED PER FLOW SHEET AT THIS TIME. PT REQUESTS PILLOWS. DENIES OTHER NEEDS. BED LOW. PHONE AND CALL LIGHT IN REACH. SRX2.
--- NOTE | 2017-04-29 20:26 | NUR ---
PM MEDS GIVEN AT THIS TIME. PT REQUESTS CUP OF ICE. DENIES OTHER NEEDS. BED LOW. PHONE AND CALL LIGHT IN REACH. SRX2.
--- NOTE | 2017-04-29 23:21 | NUR ---
ADMINISTERED TUSSIONEX PER ORDERS AT THIS TIME PER PT REQUEST. DENIES OTHER NEEDS. BED LOW. PHONE AND CALL LIGHT IN REACH. SRX2.
--- NOTE | 2017-04-30 00:38 | NUR ---
SOLU-MEDROL IVP ADMINISTERED AT THIS TIME. PT DENIES OTHER NEEDS. BED LOW. PHONE AND CALL LIGHT IN REACH. SRX2.
--- NOTE | 2017-04-30 02:04 | NUR ---
ADMINISTERED DILAUDID IVP AND XANAX PO PER ORDERS AT THIS TIME. PT DENIES OTHER NEEDS. BED LOW. PHONE AND CALL LIGHT IN REACH. SRX2.
--- NOTE | 2017-04-30 03:01 | NUR ---
PT SITTING UP IN BED WATCHING TV AT THIS TIME. DENIES NEEDS. BED LOW. PHONE AND CALL LIGHT IN REACH. SRX2.
[2017-04-30 04:00] VITALS: BP 134/71
[2017-04-30 05:26] LABS: BASOPHILS 0 % (0-2); EOSINOPHILS 0 % (0-7); HEMATOCRIT 43.3 % (36.0-48.0); HEMOGLOBIN 13.9 g/dL (12-16); IMMATURE GRANULOCYTES 0.5 % (0-5); LYMPHOCYTES 5.5 % (15-50); MCH 31.2 pg (26.0-34.0); MCHC 32.1 g/dL (31.0-37.0); MCV 97.3 fL (80.0-100.0); MEAN PLATELET VOLUME 10.5 fL (7.4-10.4); MONOCYTES 4.4 % (2-11); NEUTROPHILS 89.6 % (40-80); PLATELET COUNT 135 10x3/uL (130-400); RBC 4.45 10x6/uL (4.00-5.40); RDW 14.2 % (11.5-14.5); WBC 6.2 10x3/uL (4.8-10.8)
--- NOTE | 2017-04-30 05:28 | NUR ---
PT SITTING UP WATCHING TV AT THIS TIME. REQUESTS COFFEE. DENIES OTHER NEEDS. BED LOW. PHONE AND CALL LIGHT IN REACH. SRX2.
[2017-04-30 05:42] LABS: CALC OSMOLALITY 276 mosm/kg (275-300); CALCIUM 8.8 mg/dL (8.5-10.1); CARBON DIOXIDE 31.9 mmol/L (21.0-32.0); CHLORIDE - SERUM 101 mmol/L (98-107); CREATININE - SERUM 0.7 mg/dL (0.6-1.3); GLUCOSE 132 mg/dL (74-106); POTASSIUM - SERUM 4.1 mmol/L (3.5-5.1); SODIUM 138 mmol/L (136-145); UREA NITROGEN 11 mg/dL (7-18); eGFR NON AFRICAN AMERICAN > 90 mL/min (90-120)
--- NOTE | 2017-04-30 07:50 | NUR ---
PT REQ PAIN MEDICATION. EXPLAINED TO PT PAIN MEDICATION SCHEDULED. PT REC'D PRN PAIN MEDICATION APPROX 0630. PT STILL REFUSING SCHEDULED MOTRIN. WCTM.
[2017-04-30 08:00] VITALS: BP 116/64
--- NOTE | 2017-04-30 10:30 | NUR ---
PT REQ AND REC'D PRN PAIN MEDICATION. WCTM.
--- NOTE | 2017-04-30 11:35 | NUR ---
PT RESTING IN ROOM, DENIES NEEDS. WCTM.
--- NOTE | 2017-04-30 15:08 | NUR ---
PT REQ AND REC'D PRN PAIN MEDICATION AT THIS TIME FOR 8/10 PAIN IN LUNGS. PT ALSO REC'ING RESP TX AT THIS TIME. WCTM.
[2017-04-30 16:24] VITALS: BP 159/78
[2017-04-30 19:00] VITALS: BP 99/56
[2017-05-01] VITALS: BP 112/67
--- NOTE | 2017-05-01 00:50 | NUR ---
RECIEVED PATIENT AND REPORT, PATIENT ALERT AND ORIENTED X 4, SIDERAILS UP X 2 , BED IN LOWEST LOCKED POSITION,CALL LIGHT AND BEDSIDE TABLE IN REACH, PRN DILAUDID GIVEN AT 2000 AND AT MIDNIGHT FOR BACK AND CHEST PAIN, CPOC, CONTINUE TO MONITOR.
--- NOTE | 2017-05-01 01:28 | NUR ---
IV RESITED TO RIGHT HAND, 22 GA ONE STICK. SALINE LOCKED.
[2017-05-01 04:00] VITALS: BP 100/67
--- NOTE | 2017-05-01 04:12 | NUR ---
PRN DILAUDID GIVEN AT 0400 FOR CHEST AND BACK PAIN.
[2017-05-01 06:29] LABS: BASOPHILS 0.2 % (0-2); EOSINOPHILS 0.3 % (0-7); HEMATOCRIT 42.8 % (36.0-48.0); HEMOGLOBIN 13.4 g/dL (12-16); IMMATURE GRANULOCYTES 0.5 % (0-5); MCH 30.9 pg (26.0-34.0); MCHC 31.3 g/dL (31.0-37.0); MCV 98.8 fL (80.0-100.0); MEAN PLATELET VOLUME 10.9 fL (7.4-10.4); MONOCYTES 8.7 % (2-11); NEUTROPHILS 72.3 % (40-80); PLATELET COUNT 140 10x3/uL (130-400); RBC 4.33 10x6/uL (4.00-5.40); RDW 14.4 % (11.5-14.5); WBC 5.8 10x3/uL (4.8-10.8)
[2017-05-01 06:54] LABS: CALC OSMOLALITY 276 mosm/kg (275-300); CALCIUM 8.2 mg/dL (8.5-10.1); CARBON DIOXIDE 32.3 mmol/L (21.0-32.0); CHLORIDE - SERUM 101 mmol/L (98-107); CREATININE - SERUM 0.7 mg/dL (0.6-1.3); GLUCOSE 101 mg/dL (74-106); POTASSIUM - SERUM 3.7 mmol/L (3.5-5.1); SODIUM 138 mmol/L (136-145); eGFR NON AFRICAN AMERICAN > 90 mL/min (90-120)
[2017-05-01 06:55] LABS: UREA NITROGEN 16 mg/dL (7-18)
[2017-05-01 08:00] VITALS: BP 117/65
[2017-05-01 12:50] VITALS: BP 128/77
[2017-05-01 20:00] VITALS: BP 125/78
--- NOTE | 2017-05-01 23:10 | NUR ---
PT REST QUIETLY IN BED WITH EYE CLOSE, CALL LIGHT WITHIN REACH.
--- NOTE | 2017-05-02 03:59 | NUR ---
SITTING UP IN BED AND WATCH TV.
[2017-05-02 04:00] VITALS: BP 110/62
[2017-05-02 05:09] LABS: BASOPHILS 0 % (0-2); EOSINOPHILS 0 % (0-7); HEMATOCRIT 42.4 % (36.0-48.0); HEMOGLOBIN 13.3 g/dL (12-16); IMMATURE GRANULOCYTES 0.8 % (0-5); LYMPHOCYTES 7.5 % (15-50); MCH 31.1 pg (26.0-34.0); MCHC 31.4 g/dL (31.0-37.0); MCV 99.1 fL (80.0-100.0); MEAN PLATELET VOLUME 11.1 fL (7.4-10.4); MONOCYTES 4.8 % (2-11); NEUTROPHILS 86.9 % (40-80); PLATELET COUNT 139 10x3/uL (130-400); RBC 4.28 10x6/uL (4.00-5.40); RDW 14.3 % (11.5-14.5)
[2017-05-02 05:25] LABS: ALBUMIN 2.9 g/dL (3.4-5.0); ALKALINE PHOSPHATASE 87 U/L (46-116); ALT (SGPT) 30 U/L (10-68); BILIRUBIN - TOTAL 0.34 mg/dL (0.2-1.3); CALC OSMOLALITY 280 mosm/kg (275-300); CALCIUM 8.3 mg/dL (8.5-10.1); CARBON DIOXIDE 29.9 mmol/L (21.0-32.0); CHLORIDE - SERUM 102 mmol/L (98-107); CREATININE - SERUM 0.6 mg/dL (0.6-1.3); POTASSIUM - SERUM 3.6 mmol/L (3.5-5.1); PROTEIN - SERUM 5.4 g/dL (6.4-8.2); SODIUM 138 mmol/L (136-145); UREA NITROGEN 14 mg/dL (7-18); eGFR NON AFRICAN AMERICAN > 90 mL/min (90-120)
[2017-05-02 05:26] LABS: GLUCOSE 164 mg/dL (74-106)
--- NOTE | 2017-05-02 07:44 | NUR ---
AM ROUNDS - PE APPEARS TO BE SLEEPING WITH EQUAL AND NON LABORED BREATHING. PT IS ON 3L O2 VIA NC. LEFT HAND, SL. BED AT LOWEST POSITION, SIDE RAILS UP X2, CALL DEXTER IN USE/REACH. WILL CONTINUE TO MONITOR
[2017-05-02 08:21] VITALS: BP 111/61
--- NOTE | 2017-05-02 10:39 | NUR ---
PAGE INTO JOMAR. PT PAIN MEDS NEED TO BE RENEWED.
[2017-05-02 11:51] VITALS: BP 137/64
--- NOTE | 2017-05-02 14:21 | NUR ---
D/C - VERBAL AND WRITTEN D/C INSTRUCTIONS GIVEN TO PT. IV TO LEFT HAND TAKEN OUT AND CATH TIP INTACT. PT TOLERATED WELL. PT LEFT FLOOR VIA WHEELCHAIR WITH VOLUNTEER. WILL D/C
== END 2017-05-02 14:24 | disposition home health service (06) | DRG 189 ==
LOC: D.ER 21:28 → D.WS 23:56 → D.M2 23:56
PROVIDERS: ADMIT Family Medicine
DX: J96.22 Acute and chronic respiratory failure with hypercapnia (principal); J44.0 Chronic obstructive pulmonary disease with (acute) lower respiratory infection; I50.22 Chronic systolic (congestive) heart failure; D80.1 Nonfamilial hypogammaglobulinemia; F17.203 Nicotine dependence unspecified, with withdrawal; J98.11 Atelectasis; J44.1 Chronic obstructive pulmonary disease with (acute) exacerbation; J96.21 Acute and chronic respiratory failure with hypoxia; J20.9 Acute bronchitis, unspecified; G62.9 Polyneuropathy, unspecified; F41.9 Anxiety disorder, unspecified; M85.80 Other specified disorders of bone density and structure, unspecified site; M81.0 Age-related osteoporosis without current pathological fracture; K21.9 Gastro-esophageal reflux disease without esophagitis; I25.10 Atherosclerotic heart disease of native coronary artery without angina pectoris; G40.909 Epilepsy, unspecified, not intractable, without status epilepticus

== ENCOUNTER → 2017-06-13 14:36 | Outpatient (CLI) | payer OTHER ==
[2017-04-26 10:34] VITALS: BMI 29.7
== END | disposition home or self-care (01) ==
LOC: D.RAD 06-09 10:00
DX: J44.9 Chronic obstructive pulmonary disease, unspecified (principal); J18.9 Pneumonia, unspecified organism

== ENCOUNTER 2017-07-29 21:02 | Emergency (ER) | payer OTHER ==
[2017-04-26 10:34] VITALS: BMI 29.7
== END 2017-07-29 23:14 | disposition home or self-care (01) ==
LOC: D.ER 21:02
DX: J44.1 Chronic obstructive pulmonary disease with (acute) exacerbation (principal); I50.9 Heart failure, unspecified

== ENCOUNTER 2017-12-29 22:09 | Observation (INO) | payer OTHER ==
[~2017-12-29] VITALS: Ht 165.1 cm; Wt 84.1 kg
[2017-12-29 23:36] LABS: BASOPHILS 0.3 % (0-2); HEMATOCRIT 44.4 % (36.0-48.0); HEMOGLOBIN 14.9 g/dL (12-16); LYMPHOCYTES 18.4 % (15-50); MCH 30.7 pg (26.0-34.0); MCHC 33.6 g/dL (31.0-37.0); MCV 91.4 fL (80.0-100.0); MONOCYTES 7.6 % (2-11); NEUTROPHILS 72.7 % (40-80); RBC 4.86 10x6/uL (4.00-5.40); RDW 12.2 % (11.5-14.5); WBC 7.8 10x3/uL (4.8-10.8)
[2017-12-29 23:45] LABS: PLATELET COUNT 186 10x3/uL (130-400)
[2017-12-30] LABS: ALBUMIN 3.8 g/dL (3.4-5.0); ALKALINE PHOSPHATASE 177 U/L (46-116); ALT (SGPT) 22 U/L (10-68); CALC OSMOLALITY 273 mosm/kg (275-300); CALCIUM 9.5 mg/dL (8.5-10.1); CARBON DIOXIDE 28.1 mmol/L (21.0-32.0); CHLORIDE - SERUM 101 mmol/L (98-107); CREATININE - SERUM 0.5 mg/dL (0.6-1.3); GLUCOSE 92 mg/dL (74-106); POTASSIUM - SERUM 3.6 mmol/L (3.5-5.1); SODIUM 137 mmol/L (136-145); UREA NITROGEN 12 mg/dL (7-18); eGFR NON AFRICAN AMERICAN > 90 mL/min (90-120)
[2017-12-30 00:56] LABS: APPEARANCE CLEAR (CLEAR); BILIRUBIN NEGATIVE (NEGATIVE); COLOR YELLOW (YELLOW); GLUCOSE NEGATIVE (NEGATIVE); KETONE NEGATIVE (NEGATIVE); NITRITE NEGATIVE (NEGATIVE); PROTEIN NEGATIVE (NEGATIVE); SPECIFIC GRAVITY 1.015 (1.005-1.020); UROBILINOGEN NORMAL (NORMAL)
[2017-12-30 04:07] VITALS: BP 123/92; Ht 165.1 cm; Wt 84.1 kg
[2017-12-30 04:40] VITALS: BP 123/92
[2017-12-30 06:43] LABS: BASOPHILS 0.2 % (0-2); EOSINOPHILS 0.2 % (0-7); HEMATOCRIT 41.9 % (36.0-48.0); HEMOGLOBIN 14.1 g/dL (12-16); IMMATURE GRANULOCYTES 0.3 % (0-5); LYMPHOCYTES 9.2 % (15-50); MCH 30.4 pg (26.0-34.0); MCHC 33.7 g/dL (31.0-37.0); MCV 90.3 fL (80.0-100.0); MEAN PLATELET VOLUME 11.7 fL (7.4-10.4); MONOCYTES 8.4 % (2-11); NEUTROPHILS 81.7 % (40-80); PLATELET COUNT 184 10x3/uL (130-400); RBC 4.64 10x6/uL (4.00-5.40); RDW 12.4 % (11.5-14.5)
[2017-12-30 08:49] VITALS: BP 122/74
[2017-12-30 11:58] VITALS: BP 129/80
[2017-12-30] MEDS ORDERED: PERCOCET 10/3251 TA1 PO (14:26)
== END 2017-12-30 16:09 | disposition home or self-care (01) ==
LOC: D.ER 22:09 → D.MS 12-30 01:10 → OBSVTIME 12-30 01:10 → D.EDHOLD 12-30 01:10 → D.MS 12-30 01:37
PROVIDERS: Emergency Medicine
DX: G89.11 Acute pain due to trauma (principal); S50.01XA Contusion of right elbow, initial encounter; S40.011A Contusion of right shoulder, initial encounter; V49.3XXA Car occupant (driver) (passenger) injured in unspecified nontraffic accident, initial encounter; G62.9 Polyneuropathy, unspecified; J44.9 Chronic obstructive pulmonary disease, unspecified; I50.9 Heart failure, unspecified; K21.9 Gastro-esophageal reflux disease without esophagitis; Z87.891 Personal history of nicotine dependence

== ENCOUNTER 2018-01-21 14:27 | Emergency (ER) | payer OTHER ==
[2017-12-30 04:07] VITALS: BMI 30.8
[~2018-01-21 14:27] MED LIST changes: +PERCOCET 10/3251 TA1 PO
[2018-01-21 15:12] LABS: APPEARANCE CLEAR (CLEAR); COLOR YELLOW (YELLOW)
[2018-01-21 15:13] LABS: BILIRUBIN NEGATIVE (NEGATIVE); GLUCOSE NEGATIVE (NEGATIVE); KETONE NEGATIVE (NEGATIVE); NITRITE NEGATIVE (NEGATIVE); PROTEIN TRACE mg/dL (NEGATIVE); UROBILINOGEN NORMAL (NORMAL)
[2018-01-21 15:34] LABS: BASOPHILS 0.2 % (0-2); HEMATOCRIT 38.9 % (36.0-48.0); HEMOGLOBIN 13.1 g/dL (12-16); IMMATURE GRANULOCYTES 0.2 % (0-5); LYMPHOCYTES 19.9 % (15-50); MCH 30.3 pg (26.0-34.0); MCHC 33.7 g/dL (31.0-37.0); MCV 89.8 fL (80.0-100.0); MEAN PLATELET VOLUME 11.4 fL (7.4-10.4); MONOCYTES 8.3 % (2-11); NEUTROPHILS 70.4 % (40-80); PLATELET COUNT 170 10x3/uL (130-400); RBC 4.33 10x6/uL (4.00-5.40); RDW 12.4 % (11.5-14.5); WBC 6.1 10x3/uL (4.8-10.8)
[2018-01-21 15:47] LABS: ALBUMIN 3.3 g/dL (3.4-5.0); ALKALINE PHOSPHATASE 136 U/L (46-116); ALT (SGPT) 16 U/L (10-68); AMYLASE - SERUM 42 U/L (25-115); BILIRUBIN - TOTAL 0.23 mg/dL (0.2-1.3); CALC OSMOLALITY 280 mosm/kg (275-300); CALCIUM 8.9 mg/dL (8.5-10.1); CARBON DIOXIDE 27.5 mmol/L (21.0-32.0); CHLORIDE - SERUM 104 mmol/L (98-107); CREATININE - SERUM 0.5 mg/dL (0.6-1.3); GLUCOSE 99 mg/dL (74-106); LIPASE 88 U/L (73-393); POTASSIUM - SERUM 3.1 mmol/L (3.5-5.1); PROTEIN - SERUM 6.5 g/dL (6.4-8.2); SODIUM 141 mmol/L (136-145); UREA NITROGEN 13 mg/dL (7-18); eGFR NON AFRICAN AMERICAN > 90 mL/min (90-120)
== END 2018-01-21 19:43 | disposition home or self-care (01) ==
LOC: D.ER 14:27
PROVIDERS: Emergency Medicine; Physician Assistant Medical
DX: R11.10 Vomiting, unspecified (principal); R10.9 Unspecified abdominal pain; B34.9 Viral infection, unspecified; I50.9 Heart failure, unspecified; J44.9 Chronic obstructive pulmonary disease, unspecified

== ENCOUNTER → 2018-05-08 10:35 | Outpatient (CLI) | payer OTHER ==
[2017-12-30 04:07] VITALS: BMI 30.8
== END | disposition home or self-care (01) ==
LOC: D.RT 10:35
DX: J44.9 Chronic obstructive pulmonary disease, unspecified (principal)

== ENCOUNTER 2018-06-22 22:58 | Emergency (ER) | payer OTHER ==
[~2018-06-22] VITALS: Ht 165.1 cm; Wt 87.3 kg
[2018-06-22 23:06] VITALS: Ht 165.1 cm; Wt 87.3 kg
[2018-06-22 23:26] LABS: APPEARANCE CLEAR (CLEAR); BILIRUBIN NEGATIVE (NEGATIVE); COLOR YELLOW (YELLOW); GLUCOSE NEGATIVE (NEGATIVE); KETONE NEGATIVE (NEGATIVE); NITRITE NEGATIVE (NEGATIVE); PROTEIN NEGATIVE (NEGATIVE); UROBILINOGEN NORMAL (NORMAL)
[2018-06-22 23:28] LABS: BACTERIA NONE SEEN /hpf (NONE SEEN); CALCIUM OXALATE CRYSTALS 0-5 /hpf (NONE SEEN); EPITHELIAL CELLS 0-5 /hpf (0-5); RED CELLS - URINE 0-5 /hpf (0-5); WHITE CELLS - URINE 0-5 /hpf (0-5)
[2018-06-22 23:36] LABS: BASOPHILS 0.4 % (0-2); HEMATOCRIT 40.1 % (36.0-48.0); HEMOGLOBIN 13.2 g/dL (12-16); IMMATURE GRANULOCYTES 0.1 % (0-5); LYMPHOCYTES 23.3 % (15-50); MCH 30.1 pg (26.0-34.0); MCHC 32.9 g/dL (31.0-37.0); MCV 91.6 fL (80.0-100.0); MEAN PLATELET VOLUME 11.9 fL (7.4-10.4); MONOCYTES 6.1 % (2-11); NEUTROPHILS 69.1 % (40-80); PLATELET COUNT 172 10x3/uL (130-400); RBC 4.38 10x6/uL (4.00-5.40); RDW 12.4 % (11.5-14.5); WBC 6.7 10x3/uL (4.8-10.8)
[2018-06-22 23:50] LABS: ALBUMIN 3.1 g/dL (3.4-5.0); ALKALINE PHOSPHATASE 152 U/L (46-116); ALT (SGPT) 16 U/L (10-68); BILIRUBIN - TOTAL 0.19 mg/dL (0.2-1.3); CALC OSMOLALITY 286 mosm/kg (275-300); CALCIUM 8.7 mg/dL (8.5-10.1); CARBON DIOXIDE 31.6 mmol/L (21.0-32.0); CHLORIDE - SERUM 105 mmol/L (98-107); CREATININE - SERUM 0.8 mg/dL (0.6-1.3); GLUCOSE 111 mg/dL (74-106); POTASSIUM - SERUM 3.6 mmol/L (3.5-5.1); PROTEIN - SERUM 6.5 g/dL (6.4-8.2); SODIUM 142 mmol/L (136-145); UREA NITROGEN 21 mg/dL (7-18); eGFR NON AFRICAN AMERICAN 79 mL/min (90-120)
[2018-06-23 02:04] VITALS: BP 124/82
== END 2018-06-23 02:04 | disposition home or self-care (01) ==
LOC: D.ER 22:58
PROVIDERS: Family Medicine
DX: M54.5 Low back pain (principal); I50.9 Heart failure, unspecified; J44.9 Chronic obstructive pulmonary disease, unspecified; Z85.41 Personal history of malignant neoplasm of cervix uteri

== ENCOUNTER → 2018-07-03 19:32 | Outpatient (CLI) | payer OTHER ==
[2018-06-22 23:06] VITALS: BMI 32.0
== END | disposition home or self-care (01) ==
LOC: D.SLEEP 06-20 20:00
DX: G47.33 Obstructive sleep apnea (adult) (pediatric) (principal); Z01.812 Encounter for preprocedural laboratory examination

== ENCOUNTER 2018-07-19 18:05 | Emergency (ER) | payer OTHER ==
[~2018-07-19] VITALS: Ht 165.1 cm; Wt 90.9 kg
[2018-07-19 18:12] VITALS: Ht 165.1 cm; Wt 90.9 kg
[2018-07-19 18:37] LABS: BASOPHILS 0.4 % (0-2); EOSINOPHILS 1.2 % (0-7); HEMATOCRIT 41.3 % (36.0-48.0); HEMOGLOBIN 14.1 g/dL (12-16); IMMATURE GRANULOCYTES 0.3 % (0-5); LYMPHOCYTES 19.9 % (15-50); MCH 30.3 pg (26.0-34.0); MCHC 34.1 g/dL (31.0-37.0); MCV 88.8 fL (80.0-100.0); MEAN PLATELET VOLUME 11.9 fL (7.4-10.4); NEUTROPHILS 69.2 % (40-80); PLATELET COUNT 197 10x3/uL (130-400); RBC 4.65 10x6/uL (4.00-5.40); RDW 12.3 % (11.5-14.5); WBC 7.4 10x3/uL (4.8-10.8)
[2018-07-19 18:49] LABS: INR 0.95 (0.85-1.17); PROTIME 12.3 SECONDS (11.6-15.0)
[2018-07-19 18:50] LABS: APTT 31.3 SECONDS (22.8-39.4)
[2018-07-19 18:51] LABS: D-DIMER-QUANTITATIVE < 0.27 ug/mLFEU (0.20-0.54)
[2018-07-19 18:59] LABS: ALBUMIN 3.5 g/dL (3.4-5.0); ALKALINE PHOSPHATASE 151 U/L (46-116); ALT (SGPT) 23 U/L (10-68); BILIRUBIN - TOTAL 0.29 mg/dL (0.2-1.3); CALC OSMOLALITY 280 mosm/kg (275-300); CALCIUM 8.8 mg/dL (8.5-10.1); CARBON DIOXIDE 31.9 mmol/L (21.0-32.0); CHLORIDE - SERUM 103 mmol/L (98-107); CREATININE - SERUM 0.7 mg/dL (0.6-1.3); GLUCOSE 101 mg/dL (74-106); POTASSIUM - SERUM 3.9 mmol/L (3.5-5.1); PROTEIN - SERUM 7.1 g/dL (6.4-8.2); SODIUM 140 mmol/L (136-145); UREA NITROGEN 18 mg/dL (7-18); eGFR NON AFRICAN AMERICAN > 90 mL/min (90-120)
[2018-07-19 19:25] LABS: CKMB 1.1 U/L (0.0-3.6); CREATINE KINASE 32 UL (21-215); PRO BNP 31 pg/mL (0-125); THYROID STIMULATING HORMONE 0.31 uIU/mL (0.36-3.74)
[2018-07-19 19:27] LABS: TROPONIN-I < 0.017 ng/mL (0.000-0.060)
[2018-07-19 21:50] VITALS: BP 150/89
== END 2018-07-19 21:50 | disposition home or self-care (01) ==
LOC: D.ER 18:05
PROVIDERS: Family Medicine
DX: R06.00 Dyspnea, unspecified (principal); J44.9 Chronic obstructive pulmonary disease, unspecified; M54.2 Cervicalgia

== ENCOUNTER → 2018-11-02 07:45 | Outpatient (CLI) | payer OTHER, MEDICAID ==
[2018-07-19 18:12] VITALS: BMI 33.3
== END | disposition home or self-care (01) ==
LOC: D.RT 07:45
DX: J44.9 Chronic obstructive pulmonary disease, unspecified (principal)

== ENCOUNTER 2019-02-19 21:59 | Inpatient (IN) | payer OTHER, MEDICAID ==
[2019-02-20 00:11] VITALS: BP 132/86
[2019-02-20 00:24] LABS: APPEARANCE CLEAR (CLEAR); COLOR STRAW (YELLOW); NITRITE NEGATIVE (NEGATIVE); SPECIFIC GRAVITY 1.005 (1.005-1.020)
[2019-02-20 00:25] LABS: BILIRUBIN NEGATIVE (NEGATIVE); GLUCOSE NEGATIVE (NEGATIVE); KETONE NEGATIVE (NEGATIVE); PROTEIN NEGATIVE (NEGATIVE); UROBILINOGEN NORMAL (NORMAL)
[2019-02-20 00:47] LABS: INR 0.94 (0.85-1.17); PROTIME 12.1 SECONDS (11.6-15.0)
[2019-02-20 00:48] VITALS: BP 137/81
[2019-02-20 00:48] LABS: APTT 33.1 SECONDS (22.8-39.4); HEMATOCRIT 37.6 % (36.0-48.0); HEMOGLOBIN 12.6 g/dL (12-16); MCH 29.4 pg (26.0-34.0); MCHC 33.5 g/dL (31.0-37.0); MCV 87.9 fL (80.0-100.0); MEAN PLATELET VOLUME 11.7 fL (7.4-10.4); NEUTROPHILS 70.1 % (40-80); RBC 4.28 10x6/uL (4.00-5.40); RDW 12.1 % (11.5-14.5); WBC 5.6 10x3/uL (4.8-10.8)
[2019-02-20 00:53] VITALS: BP 139/91
[2019-02-20 00:53] LABS: ALBUMIN 3.1 g/dL (3.4-5.0); ALKALINE PHOSPHATASE 138 U/L (46-116); ALT (SGPT) 24 U/L (10-68); CALC OSMOLALITY 280 mosm/kg (275-300); CALCIUM 9.1 mg/dL (8.5-10.1); CHLORIDE - SERUM 100 mmol/L (98-107); CREATININE - SERUM 0.5 mg/dL (0.6-1.3); GLUCOSE 117 mg/dL (74-106); PLATELET COUNT 143 10x3/uL (130-400); POTASSIUM - SERUM 3.2 mmol/L (3.5-5.1); PROTEIN - SERUM 6.5 g/dL (6.4-8.2); SODIUM 141 mmol/L (136-145); UREA NITROGEN 9 mg/dL (7-18); eGFR NON AFRICAN AMERICAN > 90 mL/min (90-120)
[2019-02-20 01:07] LABS: CKMB 1.2 U/L (0.0-3.6); CREATINE KINASE 72 UL (21-215); MAGNESIUM - SERUM 1.9 mg/dL (1.8-2.4); PRO BNP 172 pg/mL (0-125)
[2019-02-20 01:09] LABS: TROPONIN-I < 0.017 ng/mL (0.000-0.060)
[2019-02-20] MEDS ORDERED: SYNTHROID88 MCG PO (05:00)
[2019-02-20] MEDS ORDERED: LYRICA150 MG PO (05:01)
[2019-02-20] MEDS ORDERED: FUROSEMIDE20 MG PO (05:01)
[2019-02-20 05:19] VITALS: BP 148/79; BMI 37.8
[2019-02-20 07:30] LABS: BASOPHILS 0.2 % (0-2); EOSINOPHILS 0.2 % (0-7); HEMATOCRIT 39.7 % (36.0-48.0); HEMOGLOBIN 13.1 g/dL (12-16); IMMATURE GRANULOCYTES 0.2 % (0-5); LYMPHOCYTES 6.3 % (15-50); MCH 29.2 pg (26.0-34.0); MCV 88.4 fL (80.0-100.0); MEAN PLATELET VOLUME 12.2 fL (7.4-10.4); MONOCYTES 0.8 % (2-11); NEUTROPHILS 92.3 % (40-80); PLATELET COUNT 167 10x3/uL (130-400); RBC 4.49 10x6/uL (4.00-5.40); RDW 12.4 % (11.5-14.5)
[2019-02-20 07:34] LABS: ALBUMIN 3.2 g/dL (3.4-5.0); ALKALINE PHOSPHATASE 146 U/L (46-116); ALT (SGPT) 25 U/L (10-68); BILIRUBIN - TOTAL 0.25 mg/dL (0.2-1.3); CALC OSMOLALITY 282 mosm/kg (275-300); CALCIUM 9.1 mg/dL (8.5-10.1); CARBON DIOXIDE 34.5 mmol/L (21.0-32.0); CHLORIDE - SERUM 101 mmol/L (98-107); CKMB 1.2 U/L (0.0-3.6); CREATINE KINASE 67 UL (21-215); CREATININE - SERUM 0.6 mg/dL (0.6-1.3); GLUCOSE 151 mg/dL (74-106); SODIUM 141 mmol/L (136-145); UREA NITROGEN 9 mg/dL (7-18); eGFR NON AFRICAN AMERICAN > 90 mL/min (90-120)
[2019-02-20 07:35] LABS: POTASSIUM - SERUM 3.8 mmol/L (3.5-5.1); TROPONIN-I < 0.017 ng/mL (0.000-0.060)
[2019-02-20 10:25] VITALS: BP 128/92
[2019-02-20 20:48] VITALS: BP 110/79
[2019-02-21] VITALS (7 sets, daily range): BP systolic 106–140; BP diastolic 62–86
[2019-02-21 06:19] LABS: ALKALINE PHOSPHATASE 118 U/L (46-116); ALT (SGPT) 22 U/L (10-68); BILIRUBIN - TOTAL 0.14 mg/dL (0.2-1.3); CALCIUM 8.9 mg/dL (8.5-10.1); CARBON DIOXIDE 34.3 mmol/L (21.0-32.0); CHLORIDE - SERUM 104 mmol/L (98-107); CREATININE - SERUM 0.7 mg/dL (0.6-1.3); GLUCOSE 128 mg/dL (74-106); MAGNESIUM - SERUM 1.9 mg/dL (1.8-2.4); PROTEIN - SERUM 6.3 g/dL (6.4-8.2); SODIUM 142 mmol/L (136-145); eGFR NON AFRICAN AMERICAN > 90 mL/min (90-120)
[2019-02-21 06:25] LABS: CALC OSMOLALITY 285 mosm/kg (275-300); UREA NITROGEN 15 mg/dL (7-18)
[2019-02-21 06:33] LABS: BASOPHILS 0.1 % (0-2); EOSINOPHILS 0 % (0-7); HEMATOCRIT 37.5 % (36.0-48.0); HEMOGLOBIN 12.4 g/dL (12-16); IMMATURE GRANULOCYTES 0.4 % (0-5); LYMPHOCYTES 13.9 % (15-50); MCH 29.5 pg (26.0-34.0); MCHC 33.1 g/dL (31.0-37.0); MCV 89.3 fL (80.0-100.0); MEAN PLATELET VOLUME 12.2 fL (7.4-10.4); MONOCYTES 7.2 % (2-11); NEUTROPHILS 78.4 % (40-80); PLATELET COUNT 173 10x3/uL (130-400); RDW 12.7 % (11.5-14.5); WBC 6.9 10x3/uL (4.8-10.8)
--- NOTE | 2019-02-21 14:39 | EC ---
PATIENT:JILL LONGORIA DATE OF SERVICE: 02/20/19 SEX: F MEDICAL RECORD: [id number] DATE OF : [birth year] LOCATION:D.M2 D.211 AGE OF PATIENT: 54 ADMISSION DATE: 02/20/19 REFERRING PHYSICIAN: INTERPRETING PHYSICIAN: VANESSA AVILA MD ECHOCARDIOGRAM REPORT ECHO CHARGES 4 ECHO COMPLETE Date: 02/21/19 CLINICAL DIAGNOSIS: DYSPNEA HX OF MN ECHOCARDIOGRAPHIC MEASUREMENTS (adult normal given) AC root (d.<3.7cm) 3.5 cm LV Septum d (<1.2 cm> 1.5 cm Valve Excursion 14.6 cm LV Septum (systole) 1.9 cm Left Atria (s.<4.0cm> 3.3 cm LVPW d(<1.2cm) 1.7 cm RV (d.<2.3cm) 3.2 cm LVPW (sytole) 2.0 cm LV diastole(<5.6CM) 5.2 cm MV E-F(>70mm/sec) cm LV systole 3.3 cm LVOT Diameter 1.7 cm MV exc.(>10mm) cm Est.ejection fraction (50-75%) % DOPPLER: LVIT cm/sec A 90.0 cm/sec E 77.0 cm/sec LA cm/sec RVSP 18 mmHg LVOT 114 cm/sec AOP1/2T m/s Asc. Ao 149 cm/sec RVOT 81 cm/sec RA cm/sec PA 120 cm/sec AV Gradient Peak 8.89 mmHg AV Mean 4.55 mmHg AV Area 1.6 cm MV Gradient Peak 5.36 mmHg MV Mean 2.41 mmHg MV Area cm COMMENTS: Coffee Sampler: Rosales VAZQUEZ Shaper And Presser: 1 Dr. Avila TAPE# PACS Pericardial Effusion N DATE OF SERVICE: 02/20/2019 FINDINGS: 1. Left ventricular chamber size is within normal limits. Left ventricular systolic function is normal. Overall ejection fraction estimated at 60%. 2. Left atrium, right atrium, and right ventricular chamber sizes are within normal limits. 3. Valvular structures have normal structure and motion. 4. Doppler interrogation reveals no significant valvular insufficiency or stenosis and pulmonary systolic pressure is normal estimated at 18 mmHg. ECHOCARDIOGRAM REPORT [id number] JILL LONGORIA 5. No evidence of pericardial effusion or left ventricular thrombus. TRANSINT:[id number] Voice Confirmation ID: [id number] DOCUMENT ID: [id number] VANESSA AVILA MD at 1439 CC: [id number] DICTATION DATE: 02/21/19 1113 SUPERVISOR STEFFEN HOUSE: 02/21/19 1319 ADM IN [facility] [address] [place] [address]
[2019-02-22] VITALS: BP 134/68
[2019-02-22 04:00] VITALS: BP 166/72
[2019-02-22 05:12] LABS: BASOPHILS 0.1 % (0-2); EOSINOPHILS 0 % (0-7); HEMOGLOBIN 11.7 g/dL (12-16); IMMATURE GRANULOCYTES 0.5 % (0-5); LYMPHOCYTES 9.1 % (15-50); MCH 29.3 pg (26.0-34.0); MCHC 32.5 g/dL (31.0-37.0); MCV 90.2 fL (80.0-100.0); MEAN PLATELET VOLUME 12.3 fL (7.4-10.4); MONOCYTES 5.3 % (2-11); PLATELET COUNT 175 10x3/uL (130-400); RBC 3.99 10x6/uL (4.00-5.40); RDW 12.7 % (11.5-14.5); WBC 7.7 10x3/uL (4.8-10.8)
[2019-02-22 05:32] LABS: ALBUMIN 2.9 g/dL (3.4-5.0); ALKALINE PHOSPHATASE 114 U/L (46-116); ALT (SGPT) 22 U/L (10-68); BILIRUBIN - TOTAL 0.15 mg/dL (0.2-1.3); CALC OSMOLALITY 283 mosm/kg (275-300); CALCIUM 8.4 mg/dL (8.5-10.1); CARBON DIOXIDE 29.8 mmol/L (21.0-32.0); CHLORIDE - SERUM 103 mmol/L (98-107); CREATININE - SERUM 0.7 mg/dL (0.6-1.3); GLUCOSE 175 mg/dL (74-106); MAGNESIUM - SERUM 2.1 mg/dL (1.8-2.4); POTASSIUM - SERUM 3.9 mmol/L (3.5-5.1); PROTEIN - SERUM 6.3 g/dL (6.4-8.2); SODIUM 140 mmol/L (136-145); UREA NITROGEN 14 mg/dL (7-18); eGFR NON AFRICAN AMERICAN > 90 mL/min (90-120)
[2019-02-22 08:36] VITALS: BP 124/68
[2019-02-22 11:45] VITALS: BP 90/51
[2019-02-22 20:00] VITALS: BP 121/57
[2019-02-23 04:00] VITALS: BP 110/60
[2019-02-23 05:50] LABS: BASOPHILS 0.1 % (0-2); EOSINOPHILS 0 % (0-7); HEMATOCRIT 36.9 % (36.0-48.0); HEMOGLOBIN 11.9 g/dL (12-16); IMMATURE GRANULOCYTES 0.9 % (0-5); LYMPHOCYTES 13.1 % (15-50); MCH 29.2 pg (26.0-34.0); MCHC 32.2 g/dL (31.0-37.0); MCV 90.7 fL (80.0-100.0); MONOCYTES 7.4 % (2-11); NEUTROPHILS 78.5 % (40-80); PLATELET COUNT 172 10x3/uL (130-400); RBC 4.07 10x6/uL (4.00-5.40); RDW 12.8 % (11.5-14.5); WBC 8.1 10x3/uL (4.8-10.8)
[2019-02-23 06:19] LABS: ALBUMIN 2.9 g/dL (3.4-5.0); ALKALINE PHOSPHATASE 103 U/L (46-116); ALT (SGPT) 17 U/L (10-68); BILIRUBIN - TOTAL 0.09 mg/dL (0.2-1.3); CALC OSMOLALITY 288 mosm/kg (275-300); CALCIUM 8.4 mg/dL (8.5-10.1); CHLORIDE - SERUM 105 mmol/L (98-107); CREATININE - SERUM 0.7 mg/dL (0.6-1.3); GLUCOSE 162 mg/dL (74-106); MAGNESIUM - SERUM 2.1 mg/dL (1.8-2.4); POTASSIUM - SERUM 3.7 mmol/L (3.5-5.1); SODIUM 142 mmol/L (136-145); UREA NITROGEN 17 mg/dL (7-18); eGFR NON AFRICAN AMERICAN > 90 mL/min (90-120)
[2019-02-23 08:49] VITALS: BP 130/67
[2019-02-23 12:35] VITALS: BP 124/58
[2019-02-23] MEDS ORDERED: FLORAJEN3 CAPS460 MG PO (15:03)
[2019-02-23] MEDS ORDERED: OMNICEF300 MG PO (15:04)
[2019-02-23] MEDS ORDERED: PREDNISONE10 MG PO (15:05)
[2019-02-23] MEDS ORDERED: DIFLUCAN200 MG PO (15:41)
[2019-02-23] MEDS ORDERED: FUROSEMIDE20 MG PO (15:41)
== END 2019-02-23 18:31 | disposition home or self-care (01) | DRG 193 ==
LOC: D.ER 21:59 → D.EDHOLD 02-20 02:58 → D.M2 02-20 04:22 → D.SDCHOLD 02-20 16:04 → D.M2 02-20 16:06
PROVIDERS: Family Medicine; ADMIT Internal Medicine Nephrology
DX: J18.9 Pneumonia, unspecified organism (principal); J96.21 Acute and chronic respiratory failure with hypoxia; I50.23 Acute on chronic systolic (congestive) heart failure; J44.1 Chronic obstructive pulmonary disease with (acute) exacerbation; J44.0 Chronic obstructive pulmonary disease with (acute) lower respiratory infection; I11.0 Hypertensive heart disease with heart failure; J40 Bronchitis, not specified as acute or chronic; K21.9 Gastro-esophageal reflux disease without esophagitis; G40.909 Epilepsy, unspecified, not intractable, without status epilepticus; E03.9 Hypothyroidism, unspecified; G89.29 Other chronic pain; F41.9 Anxiety disorder, unspecified; J20.9 Acute bronchitis, unspecified

== ENCOUNTER → 2019-04-18 13:11 | Outpatient (CLI) | payer OTHER, MEDICAID ==
[2019-02-21 16:43] VITALS: BMI 37.8
[~2019-04-18 13:11] MED LIST changes: +DIFLUCAN200 MG PO; +FUROSEMIDE20 MG PO; +FUROSEMIDE40 MG PO; +OMNICEF300 MG PO; +SYNTHROID88 MCG PO
== END | disposition home or self-care (01) ==
LOC: D.RT 04-16 15:00
PROVIDERS: ATTEND Internal Medicine Pulmonary Disease
DX: J44.9 Chronic obstructive pulmonary disease, unspecified (principal)

== ENCOUNTER 2019-04-24 00:35 | Emergency (ER) | payer OTHER, MEDICAID ==
[~2019-04-24] VITALS: Ht 165.1 cm; Wt 100.0 kg
[~2019-04-24 00:35] MED LIST changes: -FUROSEMIDE40 MG PO
[2019-04-24 00:36] VITALS: Ht 165.1 cm; Wt 100.0 kg
[2019-04-24] MEDS ORDERED: FUROSEMIDE40 MG PO (00:38)
[2019-04-24 01:17] LABS: BASOPHILS 0.4 % (0-2); HEMATOCRIT 40.6 % (36.0-48.0); HEMOGLOBIN 13.7 g/dL (12-16); IMMATURE GRANULOCYTES 0.1 % (0-5); LYMPHOCYTES 18.1 % (15-50); MCH 29.7 pg (26.0-34.0); MCHC 33.7 g/dL (31.0-37.0); MCV 88.1 fL (80.0-100.0); MONOCYTES 7.9 % (2-11); NEUTROPHILS 72.5 % (40-80); PLATELET COUNT 201 10x3/uL (130-400); RBC 4.61 10x6/uL (4.00-5.40); RDW 12.9 % (11.5-14.5); WBC 7.8 10x3/uL (4.8-10.8)
[2019-04-24 01:23] LABS: APPEARANCE CLEAR (CLEAR); BILIRUBIN NEGATIVE (NEGATIVE); COLOR YELLOW (YELLOW); GLUCOSE NEGATIVE (NEGATIVE); KETONE NEGATIVE (NEGATIVE); NITRITE NEGATIVE (NEGATIVE); PROTEIN NEGATIVE (NEGATIVE); SPECIFIC GRAVITY 1.015 (1.005-1.020); UROBILINOGEN NORMAL (NORMAL)
[2019-04-24 01:39] LABS: ALBUMIN 3.4 g/dL (3.4-5.0); ALKALINE PHOSPHATASE 124 U/L (46-116); ALT (SGPT) 24 U/L (10-68); BILIRUBIN - TOTAL 0.31 mg/dL (0.2-1.3); CALC OSMOLALITY 281 mosm/kg (275-300); CALCIUM 9.2 mg/dL (8.5-10.1); CARBON DIOXIDE 31.3 mmol/L (21.0-32.0); CHLORIDE - SERUM 101 mmol/L (98-107); CREATININE - SERUM 0.6 mg/dL (0.6-1.3); POTASSIUM - SERUM 3.6 mmol/L (3.5-5.1); PROTEIN - SERUM 6.9 g/dL (6.4-8.2); SODIUM 140 mmol/L (136-145); UREA NITROGEN 17 mg/dL (7-18); eGFR NON AFRICAN AMERICAN > 90 mL/min (90-120)
[2019-04-24 01:41] LABS: GLUCOSE 113 mg/dL (74-106)
[2019-04-24 01:46] LABS: AMYLASE - SERUM 46 U/L (25-115); LIPASE 97 U/L (73-393)
[2019-04-24 01:50] LABS: TROPONIN-I < 0.017 ng/mL (0.000-0.060)
[2019-04-24] MEDS ORDERED: CARAFATE1 G PO (03:02)
[2019-04-24] MEDS ORDERED: PROTONIX40 MG PO (03:02)
[2019-04-24 03:23] VITALS: BP 110/73
== END 2019-04-24 03:21 | disposition home or self-care (01) ==
LOC: D.ER 00:35
PROVIDERS: Family Medicine
DX: R10.9 Unspecified abdominal pain (principal); K29.70 Gastritis, unspecified, without bleeding

== ENCOUNTER 2019-07-04 02:00 | Inpatient (IN) | payer OTHER, MEDICAID ==
[2019-07-04] VITALS (9 sets, daily range): BP systolic 101–145; BP diastolic 55–81; Ht 165.1 cm; Wt 95.3 kg
[~2019-07-04] VITALS: Ht 165.1 cm; Wt 95.3 kg
[~2019-07-04 02:00] MED LIST changes: +CARAFATE1 G PO; +FUROSEMIDE40 MG PO; +PROTONIX40 MG PO
[2019-07-04 02:39] LABS: BASOPHILS 0.3 % (0-2); EOSINOPHILS 1.2 % (0-7); HEMATOCRIT 37.3 % (36.0-48.0); HEMOGLOBIN 12.7 g/dL (12-16); IMMATURE GRANULOCYTES 0.2 % (0-5); LYMPHOCYTES 20.2 % (15-50); MCH 29.4 pg (26.0-34.0); MCV 86.3 fL (80.0-100.0); MEAN PLATELET VOLUME 12.5 fL (7.4-10.4); MONOCYTES 8.6 % (2-11); NEUTROPHILS 69.5 % (40-80); PLATELET COUNT 165 10x3/uL (130-400); RBC 4.32 10x6/uL (4.00-5.40); RDW 12.6 % (11.5-14.5); WBC 6.5 10x3/uL (4.8-10.8)
[2019-07-04 02:49] LABS: APTT 31.6 SECONDS (22.8-39.4); INR 0.9 (0.85-1.17); PROTIME 11.7 SECONDS (11.6-15.0)
[2019-07-04 03:04] LABS: ALKALINE PHOSPHATASE 154 U/L (46-116); ALT (SGPT) 27 U/L (10-68); AMYLASE - SERUM 34 U/L (25-115); BILIRUBIN - TOTAL 0.27 mg/dL (0.2-1.3); CALC OSMOLALITY 285 mosm/kg (275-300); CALCIUM 8.6 mg/dL (8.5-10.1); CARBON DIOXIDE 37.5 mmol/L (21.0-32.0); CHLORIDE - SERUM 100 mmol/L (98-107); CKMB 0.8 U/L (0.0-3.6); CREATINE KINASE 64 UL (21-215); CREATININE - SERUM 0.9 mg/dL (0.6-1.3); GLUCOSE 134 mg/dL (74-106); MAGNESIUM - SERUM 1.3 mg/dL (1.8-2.4); PROTEIN - SERUM 6.7 g/dL (6.4-8.2); SODIUM 143 mmol/L (136-145); TROPONIN-I < 0.017 ng/mL (0.000-0.060); UREA NITROGEN 11 mg/dL (7-18); eGFR NON AFRICAN AMERICAN 69 mL/min (90-120)
[2019-07-04 03:05] LABS: LIPASE 47 U/L (73-393); POTASSIUM - SERUM 2.9 mmol/L (3.5-5.1)
--- NOTE | 2019-07-04 03:08 | NUR ---
URINE SENT TO LAB
[2019-07-04 03:14] LABS: APPEARANCE CLEAR (CLEAR); BILIRUBIN NEGATIVE (NEGATIVE); COLOR YELLOW (YELLOW); GLUCOSE NEGATIVE (NEGATIVE); KETONE NEGATIVE (NEGATIVE); NITRITE NEGATIVE (NEGATIVE); PROTEIN NEGATIVE (NEGATIVE); SPECIFIC GRAVITY 1.015 (1.005-1.020); UROBILINOGEN NORMAL (NORMAL)
--- NOTE | 2019-07-04 03:51 | NUR ---
PT RETURNED FROM CT AT THIS TIME. RATES PAIN 10/10 IN STOMACH. NAUSEA IS SOME IMPROVED AT THIS TIME.
--- NOTE | 2019-07-04 05:45 | NUR ---
FIRST INFUSION OF MAG SULFATE COMPLETE AT THIS TIME.
--- NOTE | 2019-07-04 06:20 | NUR ---
REC'D TO ROOM 2232 PER STRETCHER FROM ER DEPT WITH DX ABDOMINAL PAIN AND CHEST PAIN. IV IN THE LEFT ARM WITH MAGNESSIUM HANGING. K+ OF 2.9 NOT TREATED IN THE ER DEPT.
--- NOTE | 2019-07-04 06:35 | NUR ---
K+ 20MEQ PO TAB ONE GIVEN FOR LOW K+ LEVEL PER ORESTES. DOSE #1.
--- NOTE | 2019-07-04 07:11 | NUR ---
NOTIFIED ARELIS ROWELL PATIENT REQUESTING UPDRAFT TX. ORDERS REC'D NOTIFIED RT TECH.
[2019-07-04 08:25] LABS: ALKALINE PHOSPHATASE 147 U/L (46-116); ALT (SGPT) 26 U/L (10-68); BILIRUBIN - TOTAL 0.23 mg/dL (0.2-1.3); CALC OSMOLALITY 280 mosm/kg (275-300); CALCIUM 8.7 mg/dL (8.5-10.1); CARBON DIOXIDE 36.7 mmol/L (21.0-32.0); CHLORIDE - SERUM 100 mmol/L (98-107); CREATININE - SERUM 0.8 mg/dL (0.6-1.3); GLUCOSE 108 mg/dL (74-106); POTASSIUM - SERUM 3.1 mmol/L (3.5-5.1); PROTEIN - SERUM 6.4 g/dL (6.4-8.2); SODIUM 141 mmol/L (136-145); UREA NITROGEN 9 mg/dL (7-18); eGFR NON AFRICAN AMERICAN 79 mL/min (90-120)
[2019-07-04 08:26] LABS: BASOPHILS 0.3 % (0-2); EOSINOPHILS 1.4 % (0-7); HEMATOCRIT 35.9 % (36.0-48.0); HEMOGLOBIN 12.2 g/dL (12-16); IMMATURE GRANULOCYTES 0.2 % (0-5); LYMPHOCYTES 24.6 % (15-50); MCH 29.5 pg (26.0-34.0); MCV 86.7 fL (80.0-100.0); MEAN PLATELET VOLUME 12.5 fL (7.4-10.4); MONOCYTES 10.8 % (2-11); NEUTROPHILS 62.7 % (40-80); PLATELET COUNT 158 10x3/uL (130-400); RBC 4.14 10x6/uL (4.00-5.40); RDW 12.9 % (11.5-14.5); WBC 6.5 10x3/uL (4.8-10.8)
[2019-07-04 08:31] LABS: CKMB 0.8 U/L (0.0-3.6); CREATINE KINASE 61 UL (21-215); MAGNESIUM - SERUM 2.3 mg/dL (1.8-2.4); TROPONIN-I < 0.017 ng/mL (0.000-0.060)
--- NOTE | 2019-07-04 08:43 | NUR ---
REC'D PT AT 0740. CO OF CHEST PAIN. RAPID RESPONSE CALLED. 142/79.93%ON 3 L NC. TELE-93 NORMAL SINUS. NITRO X1 GIVEN PER MD ORDER. RECHECK. 145/76.107.93% O2 3L NC. DENIES CHEST PAIN. NO S/S OF ACUTE DISTRESS. CL IN PLACE. CONTINUING ELECTROLTE PROTOCOL PER MD ORDER.
[2019-07-04 10:39] LABS: THYROID STIMULATING HORMONE 4.56 uIU/mL (0.36-3.74)
[2019-07-04] MEDS ORDERED: HYDROCODON-ACE1 EA10 PO (12:48)
[2019-07-04] MEDS ORDERED: SOMA350 MG (12:49)
[2019-07-04 14:44] LABS: CKMB 1.5 U/L (0.0-3.6); CREATINE KINASE 77 UL (21-215)
[2019-07-04 14:45] LABS: TROPONIN-I < 0.017 ng/mL (0.000-0.060)
--- NOTE | 2019-07-04 19:24 | NUR ---
PT RESTING IN BED. NO S/S OF ACUTE DISTRESS. CL IN PLACE.
--- NOTE | 2019-07-04 19:40 | NUR ---
PT RESTING IN BED WITHOUT DISTRESS, AOX4. SLIGHTLY SOB. REQUESTED PRN BREATHING TX. PAGED RESP. O2 4L/NC. IV LEFT WRIST SL. HR 97 SR PER TELE. DENIES NEEDS AT THIS TIME. CL IN REACH, WILL CTM
[2019-07-04 20:33] LABS: CKMB 1.2 U/L (0.0-3.6); CREATINE KINASE 74 UL (21-215); TROPONIN-I < 0.017 ng/mL (0.000-0.060)
--- NOTE | 2019-07-04 21:00 | NUR ---
PT REMINDED SHE IS NPO AFTER MN AND CANNOT HAVE PAIN MEDS AFTER MN, VERBALIZED UNDERSTANDING
[2019-07-05 04:00] VITALS: BP 116/78
[2019-07-05 06:35] LABS: BASOPHILS 0.2 % (0-2); EOSINOPHILS 3.1 % (0-7); HEMATOCRIT 37.2 % (36.0-48.0); HEMOGLOBIN 12.1 g/dL (12-16); IMMATURE GRANULOCYTES 0.2 % (0-5); LYMPHOCYTES 24.8 % (15-50); MCH 28.9 pg (26.0-34.0); MCHC 32.5 g/dL (31.0-37.0); MEAN PLATELET VOLUME 12.5 fL (7.4-10.4); MONOCYTES 9.4 % (2-11); NEUTROPHILS 62.3 % (40-80); PLATELET COUNT 153 10x3/uL (130-400); RBC 4.18 10x6/uL (4.00-5.40); RDW 13.1 % (11.5-14.5)
[2019-07-05 06:41] LABS: WBC 4.2 10x3/uL (4.8-10.8)
[2019-07-05 06:49] LABS: CALC OSMOLALITY 283 mosm/kg (275-300); CALCIUM 9.1 mg/dL (8.5-10.1); CHLORIDE - SERUM 100 mmol/L (98-107); CREATININE - SERUM 0.8 mg/dL (0.6-1.3); GLUCOSE 108 mg/dL (74-106); POTASSIUM - SERUM 3.4 mmol/L (3.5-5.1); SODIUM 143 mmol/L (136-145); UREA NITROGEN 8 mg/dL (7-18); eGFR NON AFRICAN AMERICAN 79 mL/min (90-120)
--- NOTE | 2019-07-05 08:00 | NUR ---
PT RETUIRNED FROM EGD. NO S/S OF ACUTE DISTRESS. "I NEED A BRETAHING TX" O2-97% 3L NC. SPOKE WITH SASCHA RT. 41 CO2 REPORTED. TOLD [place] GUO APN. NO S/S OF ACUTE DISTRESS. CL IN PLACE
[2019-07-05 09:39] VITALS: BP 143/71
[2019-07-05 11:40] LABS: UDS - AMPHET NEGATIVE QUAL (NEGATIVE); UDS - BARB NEGATIVE QUAL (NEGATIVE); UDS - BENZO POSITIVE QUAL (NEGATIVE); UDS - COCAINE NEGATIVE QUAL (NEGATIVE); UDS - OPIATE POSITIVE QUAL (NEGATIVE); UDS - PCP NEGATIVE QUAL (NEGATIVE); UDS - THC NEGATIVE QUAL (NEGATIVE)
[2019-07-05 11:56] VITALS: BP 128/71
--- NOTE | 2019-07-05 13:54 | MORECARE ---
CASE MANAGEMENT DISCHARGE SUMMARY PATIENT: JILL LONGORIA UNIT: [id number] ADM DATE: 07/04/19 AGE: 54 : 65 SEX: F ROOM/BED: D.[facility] AUTHOR: ALMA ALEX PHYSICIAN: REFERRING PHYSICIAN: BEVERLEY MAYO MD DATE OF SERVICE: 07/05/19 Discharge Plan Patient Name: JILL LONGORIA Facility: [facility]:[place] : 1965 Planned Disposition: Home Anticipated Discharge Date: Discharge Date: Expected LOS: Initial Reviewer: [email or web address] Initial Review Date: 07/05/2019 Generated: 07/05/19 2:54 pm Patient Name: JILL LONGORIA Page [id number] at 1354 All edits/amendments must be made on the electronic document DICTATION DATE: 07/05/19 1353 ASSISTANT PROFESSOR OF HISTORY: JOHN 07/05/19 1353 RPT#: [id number] DC DATE: STATUS: ADM IN [facility] [address] [place] [address] END OF REPORT
--- NOTE | 2019-07-05 14:03 | MORECARE ---
CASE MANAGEMENT DISCHARGE SUMMARY PATIENT: JILL LONGORIA UNIT: [id number] ADM DATE: 07/04/19 AGE: 54 : 65 SEX: F ROOM/BED: D.2232 AUTHOR: ALMA ALEX PHYSICIAN: REFERRING PHYSICIAN: BEVERLEY MAYO MD DATE OF SERVICE: 07/05/19 Discharge Plan Patient Name: JILL LONGORIA Facility: [facility]:[place] : 1965 Planned Disposition: Home Anticipated Discharge Date: Discharge Date: Expected LOS: Initial Reviewer: [email or web address] Initial Review Date: 07/05/2019 Generated: 07/05/19 3:02 pm DCPIA - Discharge Planning Initial Assessment Updated by [email or web address]: Gina Ronquillo on 07/05/19 1:59 pm * Is the patient Alert and Oriented? Yes * How many steps to enter\exit or inside your home? 2/0 * PCP Dr. Ryan in [place] * Pharmacy [facility] * Preadmission Environment Home with Family * ADLs Partial Dependent * Partial ADLs (Assistance needed) Ambulation Bathing * Equipment Nebulizer Other Oxygen Shower Chair Walker * Other Equipment Portable oxygen * List name and contact numbers for known caregivers / representatives who currently or will assist patient after discharge: Fracisco Longoria - [facility] - [phone] Tish Hoang - [phone] * Verbal permission to speak to the caregivers and representatives has been obtained from the patient. Yes * Community resources currently utilized None * Additional services required to return to the preadmission environment? No * Can the patient safely return to the preadmission environment? Yes * Has this patient been hospitalized within the prior 30 days at any hospital? No Last DP export: 07/05/19 12:54 p Patient Name: JILL LONGORIA Page [id number] at 1403 All edits/amendments must be made on the electronic document DICTATION DATE: 07/05/19 140 FINE GRADE BULLDOZER OPERATOR: JOHN 07/05/19 140 RPT#: [id number] DC DATE: STATUS: ADM IN [facility] [address] [place] [address] END OF REPORT
--- NOTE | 2019-07-05 14:12 | MORECARE ---
CASE MANAGEMENT DISCHARGE SUMMARY PATIENT: JILL LONGORIA UNIT: [id number] ADM DATE: 07/04/19 AGE: 54 : 65 SEX: F ROOM/BED: D.2232 AUTHOR: ALMA ALEX PHYSICIAN: REFERRING PHYSICIAN: BEVERLEY MAYO MD DATE OF SERVICE: 07/05/19 Discharge Plan Patient Name: JILL LONGORIA Facility: [facility]:[place] : 1965 Planned Disposition: Home Anticipated Discharge Date: Discharge Date: Expected LOS: Initial Reviewer: [email or web address] Initial Review Date: 07/05/2019 Generated: 07/05/19 3:12 pm Comments DCP- Discharge Planning Updated by [email or web address]: Gina Ronquillo on 07/05/19 1:[address] Patient Name: JILL LONGORIA Admission Status: ER Accout number: [id number] Admission Date: 07-04-2019 : 1965 Admission Diagnosis: Attending: BEVERLEY MAYO Current LOS: 1 Anticipated DC Date: Planned Disposition: Home Primary Insurance: Discharge Planning Comments: CM met with patient to discuss discharge planning/needs, she is alone in the room. States she is living with her (they are ) at this time at [address] [place] [address]. States she will be returning there on discharge. She states she gets her oxygen supplies from [facility]. States she needs a new nebulizer and would like to get it from [facility]. She states she is not happy with [facility], but will leave her oxygen there for now. She states she would like a BSC also. I have called [facility] and will fax order and clinical to [facility] to see if they can provide DME she has asked for. She states she has already applied for help through [facility], but her makes too much money to qualify for private duty help through Medicaid. I provided her the number for [facility] if she needs transportation to and from doctor appointments. Declines need for home health at this time, states "I just need someone to make my bed." CM will continue to assist with discharge planning/needs. Property Inspector: Gina Ronquillo DCPIA - Discharge Planning Initial Assessment Updated by [email or web address]: Gina Ronquillo on 07/05/19 1:59 pm * Is the patient Alert and Oriented? Yes * How many steps to enter\\exit or inside your home? 2/0 * PCP Dr. Ryan in [place] * Pharmacy [facility] * Preadmission Environment Home with Family * ADLs Partial Dependent * Partial ADLs (Assistance needed) Ambulation Bathing * Equipment Nebulizer Other Oxygen Shower Chair Walker * Other Equipment Portable oxygen * List name and contact numbers for known caregivers / representatives who currently or will assist patient after discharge: Fracisco Longoria - - [phone] Tish Hoang [phone] * Verbal permission to speak to the caregivers and representatives has been obtained from the patient. Yes * Community resources currently utilized None * Additional services required to return to the preadmission environment? No * Can the patient safely return to the preadmission environment? Yes * Has this patient been hospitalized within the prior 30 days at any hospital? No Last DP export: 07/05/19 1:03 p Patient Name: JILL LONGORIA Page [phone] at 1412 All edits/amendments must be made on the electronic document DICTATION DATE: 07/05/19 141 MEDIA LIAISON OFFICER: JOHN 07/05/19 141 RPT#: [id number] DC DATE: STATUS: ADM IN [facility] [address] [place] [address] END OF REPORT
--- NOTE | 2019-07-05 14:20 | MORECARE ---
CASE MANAGEMENT DISCHARGE SUMMARY PATIENT: JILL LONGORIA UNIT: [id number] ADM DATE: 07/04/19 AGE: 54 : 65 SEX: F ROOM/BED: D.2232 AUTHOR: ALMA ALEX PHYSICIAN: REFERRING PHYSICIAN: BEVERLEY MAYO MD DATE OF SERVICE: 07/05/19 Discharge Plan Patient Name: JILL LONGORIA Facility: [facility]:[place] : 1965 Planned Disposition: Home Anticipated Discharge Date: Discharge Date: Expected LOS: Initial Reviewer: [id number] Initial Review Date: 07/05/2019 Generated: 07/05/19 3:20 pm Comments DCP- Discharge Planning Updated by [id number]: Gina Ronquillo on 07/05/19 1:[address] Patient Name: JILL LONGORIA Admission Status: ER Accout number: [id number] Admission Date: 07-04-2019 : 1965 Admission Diagnosis: Attending: BEVERLEY MAYO Current LOS: 1 Anticipated DC Date: Planned Disposition: Home Primary Insurance: Discharge Planning Comments: CM met with patient to discuss discharge planning/needs, she is alone in the room. States she is living with her (they are ) at this time at [address] [place] [address]. States she will be returning there on discharge. She states she gets her oxygen supplies from [facility]. States she needs a new nebulizer and would like to get it from [facility]. She states she is not happy with [facility], but will leave her oxygen there for now. She states she would like a BSC also. I have called Wesley and will fax order and clinical to [facility] to see if they can provide DME she has asked for. She states she has already applied for help through [facility], but her makes too much money to qualify for private duty help through Medicaid. I provided her the number for [facility] if she needs transportation to and from doctor appointments. Declines need for home health at this time, states "I just need someone to make my bed." CM will continue to assist with discharge planning/needs. Suede Brusher: Gina Ronquillo DCPIA - Discharge Planning Initial Assessment Updated by [id number]: Gina Ronquillo on 07/05/19 1:59 pm * Is the patient Alert and Oriented? Yes * How many steps to enter\\exit or inside your home? 2/0 * PCP Dr. Ryan in [place] * Pharmacy [facility] * Preadmission Environment Home with Family * ADLs Partial Dependent * Partial ADLs (Assistance needed) Ambulation Bathing * Equipment Nebulizer Other Oxygen Shower Chair Walker * Other Equipment Portable oxygen * List name and contact numbers for known caregivers / representatives who currently or will assist patient after discharge: Fracisco Longoria - - [phone] Tish Hoang [phone] * Verbal permission to speak to the caregivers and representatives has been obtained from the patient. Yes * Community resources currently utilized None * Additional services required to return to the preadmission environment? No * Can the patient safely return to the preadmission environment? Yes * Has this patient been hospitalized within the prior 30 days at any hospital? No External Providers [facility] Next Contact Date: Service Request Date: Service Type: Resolution: Reviewer: Comments: Coverage Notice Reviewer: [id number] - Gina Ronquillo Notice Issued Date-Time: 07/05/2019 14:16 Notice Type: Patient Choice Letter Notice Delivered To: Patient Relationship to Patient: Self Drilling Field Professional Name: Delivery Method: HAND - Hand Delivered Tabitha Days: Prior Verbal Notification: Recipient Understood Notice: Yes Recipient Signature: Yes Med Rec Note Co-signed by Attending: Coverage Notice Comment: ULISES for [employer] for nebulizer and BSC States uses [facility] for oxygen only Last DP export: 07/05/19 1:12 p Patient Name: JILL LONGORIA Page [id number] at 1420 All edits/amendments must be made on the electronic document DICTATION DATE: 07/05/19 1420 VIDEO POKER FLOORMAN: JOHN 07/05/19 1420 RPT#: [id number] DC DATE: STATUS: ADM IN [facility] [address] [place] [address] END OF REPORT
--- NOTE | 2019-07-05 15:44 | MORECARE ---
CASE MANAGEMENT DISCHARGE SUMMARY PATIENT: JILL LONGORIA UNIT: [id number] ADM DATE: 07/04/19 AGE: 54 : 65 SEX: F ROOM/BED: D.2232 AUTHOR: ALMA ALEX PHYSICIAN: REFERRING PHYSICIAN: BEVERLEY MAYO MD DATE OF SERVICE: 07/05/19 Discharge Plan Patient Name: JILL LONGORIA Facility: [facility]:[place] : 1965 Planned Disposition: Home Anticipated Discharge Date: Discharge Date: Expected LOS: Initial Reviewer: [email or web address] Initial Review Date: 07/05/2019 Generated: 07/05/19 4:44 pm Comments DCP- Discharge Planning Updated by [id number]: Gina Ronquillo on 07/05/19 1:[address] Patient Name: JILL LONGORIA Admission Status: ER Accout number: [id number] Admission Date: 07-04-2019 : 1965 Admission Diagnosis: Attending: BEVERLEY MAYO Current LOS: 1 Anticipated DC Date: Planned Disposition: Home Primary Insurance: Discharge Planning Comments: CM met with patient to discuss discharge planning/needs, she is alone in the room. States she is living with her (they are ) at this time at [address] [place] [address]. States she will be returning there on discharge. She states she gets her oxygen supplies from [facility]. States she needs a new nebulizer and would like to get it from [facility]. She states she is not happy with [facility], but will leave her oxygen there for now. She states she would like a BSC also. I have called Wesley and will fax order and clinical to [facility] to see if they can provide DME she has asked for. She states she has already applied for help through [facility], but her makes too much money to qualify for private duty help through Medicaid. I provided her the number for [facility] if she needs transportation to and from doctor appointments. Declines need for home health at this time, states "I just need someone to make my bed." CM will continue to assist with discharge planning/needs. Exercise Physiologist Certified: Gina Ronquillo DCPIA - Discharge Planning Initial Assessment Updated by [email or web address]: Gina Ronquillo on 07/05/19 1:59 pm * Is the patient Alert and Oriented? Yes * How many steps to enter\\exit or inside your home? 2/0 * PCP Dr. Ryan in [place] * Pharmacy [facility] * Preadmission Environment Home with Family * ADLs Partial Dependent * Partial ADLs (Assistance needed) Ambulation Bathing * Equipment Nebulizer Other Oxygen Shower Chair Walker * Other Equipment Portable oxygen * List name and contact numbers for known caregivers / representatives who currently or will assist patient after discharge: Fracisco Longoria - - [phone] Tish Hoang [phone] * Verbal permission to speak to the caregivers and representatives has been obtained from the patient. Yes * Community resources currently utilized None * Additional services required to return to the preadmission environment? No * Can the patient safely return to the preadmission environment? Yes * Has this patient been hospitalized within the prior 30 days at any hospital? No Coverage Notice Reviewer: [id number] - Gina Ronquillo Notice Issued Date-Time: 07/05/2019 14:16 Notice Type: Patient Choice Letter Notice Delivered To: Patient Relationship to Patient: Self Missing Persons Investigator Name: Delivery Method: HAND - Hand Delivered Tabitha Days: Prior Verbal Notification: Recipient Understood Notice: Yes Recipient Signature: Yes Med Rec Note Co-signed by Attending: Coverage Notice Comment: ULISES for [employer] for nebulizer and BSC States uses [facility] for oxygen only Last DP export: 07/05/19 1:20 p Patient Name: JILL LONGORIA Page 20205 at 1544 All edits/amendments must be made on the electronic document DICTATION DATE: 07/05/19 1544 CLINIC CHARGE NURSE: JOHN 07/05/19 1544 RPT#: [id number] DC DATE: STATUS: ADM IN [facility] [address] [place] [address] END OF REPORT
[2019-07-05 20:00] VITALS: BP 105/73
--- NOTE | 2019-07-05 20:10 | NUR ---
UP IN BED WITH TV ON, REQUEST PAIN MEDS, GIVEN PER ORDERS. IV TO LEFT WRIST IS PATENT TO SALINE LOC, WILL NOTE ANY CHANGE.
[2019-07-06] VITALS: BP 124/74
[2019-07-06 04:00] VITALS: BP 123/74
--- NOTE | 2019-07-06 04:04 | NUR ---
I have reviewed this patient and I concur with the Shift Assessment completed by the Licensed Practical Nurse today this shift.
--- NOTE | 2019-07-06 04:04 | NUR ---
REPORTED TO AID BEING IN NEED OF PAIN MEDICATION, WHEN NURSE WENT TO ASSESS, PT WAS ASLEEP, AROUSED TO VERBAL STIMULI, STATED SHE NEEDED MEDICATION FOR PAIN, NORCO GIVEN PER ORDERS. WILL NOTE ANY CHANGE.
[2019-07-06 06:34] LABS: BASOPHILS 0.4 % (0-2); EOSINOPHILS 1.5 % (0-7); HEMOGLOBIN 11.6 g/dL (12-16); IMMATURE GRANULOCYTES 0.2 % (0-5); LYMPHOCYTES 22.9 % (15-50); MCH 29.4 pg (26.0-34.0); MCHC 33.1 g/dL (31.0-37.0); MCV 88.8 fL (80.0-100.0); MEAN PLATELET VOLUME 12.9 fL (7.4-10.4); PLATELET COUNT 150 10x3/uL (130-400); RBC 3.94 10x6/uL (4.00-5.40); RDW 12.9 % (11.5-14.5); WBC 4.7 10x3/uL (4.8-10.8)
[2019-07-06 06:56] LABS: CALC OSMOLALITY 281 mosm/kg (275-300); CALCIUM 8.4 mg/dL (8.5-10.1); CARBON DIOXIDE 36.4 mmol/L (21.0-32.0); CHLORIDE - SERUM 100 mmol/L (98-107); CREATININE - SERUM 0.6 mg/dL (0.6-1.3); GLUCOSE 100 mg/dL (74-106); MAGNESIUM - SERUM 1.9 mg/dL (1.8-2.4); POTASSIUM - SERUM 3.5 mmol/L (3.5-5.1); SODIUM 142 mmol/L (136-145); UREA NITROGEN 10 mg/dL (7-18); eGFR NON AFRICAN AMERICAN > 90 mL/min (90-120)
--- NOTE | 2019-07-06 07:45 | NUR ---
PT RESTING IN BED WITH EYES OPEN, ALERT AND ORIENTED. IV LOCATED TO LEFT WRIST, CURRENTLY SL. CURRENTLY RCVING 3 LITERS VIA NC. ABDOMEN FIRM AND DISTENDED, TENDER TO TOUCH. DENIES NEEDS AT THIS TIME. BED LOW, CALL LIGHT IN REACH, RAILS UP X 2.
[2019-07-06 08:21] VITALS: BP 113/74
[2019-07-06] MEDS ORDERED: BYSTOLIC5 MG PO (10:13)
[2019-07-06] MEDS ORDERED: ZITHROMAX500 MG PO (10:15)
[2019-07-06 11:38] VITALS: BP 113/64
--- NOTE | 2019-07-06 13:26 | MORECARE ---
CASE MANAGEMENT DISCHARGE SUMMARY PATIENT: JILL LONGORIA UNIT: [id number] ADM DATE: 07/04/19 AGE: 54 : 65 SEX: F ROOM/BED: D.2232 AUTHOR: ALMA ALEX PHYSICIAN: REFERRING PHYSICIAN: BEVERLEY MAYO MD DATE OF SERVICE: 07/06/19 Discharge Plan Patient Name: JILL LONGORIA Facility: [facility]:[place] : 1965 Planned Disposition: Home Anticipated Discharge Date: Discharge Date: Expected LOS: Initial Reviewer: [email or web address] Initial Review Date: 07/05/2019 Generated: 07/06/19 2:26 pm Comments DCP- Discharge Planning Updated by [email or web address]: Gina Ronquillo on 07/06/19 12:[address] Received discharge orders. I informed the patient that she will need to use her VA for DME according to Wesley at [facility]. I did inform her that [facility] has nebulizer for jean pay for 50 dollars. I called [facility] and she is still listed as address in [facility]. They states they cannot transport her to [place] without changing her address with [facility]. I informed her of this and she voiced understanding. She states her will come back and take her home. She states they just live right over the [facility]. Home today. DCP- Discharge Planning Updated by [email or web address]: Gina Ronquillo on 07/05/19 1:[address] Patient Name: JILL LONGORIA Admission Status: ER Accout number: [id number] Admission Date: 07-04-2019 : 1965 Admission Diagnosis: Attending: BEVERLEY MAYO Current LOS: 1 Anticipated DC Date: Planned Disposition: Home Primary Insurance: Discharge Planning Comments: CM met with patient to discuss discharge planning/needs, she is alone in the room. States she is living with her (they are ) at this time at [address] [place] [address] in [facility]. States she will be returning there on discharge. She states she gets her oxygen supplies from [facility]. States she needs a new nebulizer and would like to get it from [facility]. She states she is not happy with [facility], but will leave her oxygen there for now. She states she would like a BSC also. I have called [facility] and will fax order and clinical to [facility] to see if they can provide DME she has asked for. She states she has already applied for help through [facility], but her makes too much money to qualify for private duty help through Medicaid. I provided her the number for [facility] if she needs transportation to and from doctor appointments. Declines need for home health at this time, states "I just need someone to make my bed." CM will continue to assist with discharge planning/needs. Customer Engagement Representative: Gina Ronquillo DCPIA - Discharge Planning Initial Assessment Updated by [email or web address]: Gina Ronquillo on 07/05/19 1:59 pm * Is the patient Alert and Oriented? Yes * How many steps to enter\\exit or inside your home? 2/0 * PCP Dr. Ryan in [place] * Pharmacy [facility] * Preadmission Environment Home with Family * ADLs Partial Dependent * Partial ADLs (Assistance needed) Ambulation Bathing * Equipment Nebulizer Other Oxygen Shower Chair Walker * Other Equipment Portable oxygen * List name and contact numbers for known caregivers / representatives who currently or will assist patient after discharge: Fracisco Longoria - - [phone] Tish Hoang - [phone] * Verbal permission to speak to the caregivers and representatives has been obtained from the patient. Yes * Community resources currently utilized None * Additional services required to return to the preadmission environment? No * Can the patient safely return to the preadmission environment? Yes * Has this patient been hospitalized within the prior 30 days at any hospital? No Coverage Notice Reviewer: [email or web address] - Gina Ronquillo Notice Issued Date-Time: 07/05/2019 14:16 Notice Type: Patient Choice Letter Notice Delivered To: Patient Relationship to Patient: Self Instructional Technology Director Name: Delivery Method: HAND - Hand Delivered Tabitha Days: Prior Verbal Notification: Recipient Understood Notice: Yes Recipient Signature: Yes Med Rec Note Co-signed by Attending: Coverage Notice Comment: ULISES for [facility] for nebulizer and BSC States uses [facility] for oxygen only Last DP export: 07/05/19 2:44 p Patient Name: JILL LONGORIA Page [id number] at 1326 All edits/amendments must be made on the electronic document DICTATION DATE: 07/06/19 1326 UPHOLSTERER OUTSIDE: JOHN 07/06/19 1326 RPT#: [id number] DC DATE: STATUS: ADM IN [facility] [address] [place] [address] END OF REPORT
--- NOTE | 2019-07-07 12:10 | MORECARE ---
CASE MANAGEMENT DISCHARGE SUMMARY PATIENT: JILL LONGORIA UNIT: [id number] ADM DATE: 07/04/19 AGE: 54 : 65 SEX: F ROOM/BED: D.2232 AUTHOR: ALMA ALEX PHYSICIAN: REFERRING PHYSICIAN: BEVERLEY MAYO MD DATE OF SERVICE: 07/07/19 Discharge Plan Patient Name: JILL LONGORIA Facility: [facility]:[place] : 1965 Planned Disposition: Home Anticipated Discharge Date: Discharge Date: 07/06/2019 Expected LOS: Initial Reviewer: [email or web address] Initial Review Date: 07/05/2019 Generated: 07/07/19 1:10 pm Comments DCP- Discharge Planning Updated by [email or web address]: Gina Ronquillo on 07/06/19 12:[address] Received discharge orders. I informed the patient that she will need to use her VA for DME according to Wesley at [facility]. I did inform her that [facility] has nebulizer for jean pay for 50 dollars. I called [facility] and she is still listed as address in [facility]. They states they cannot transport her to [place] without changing her address with [facility]. I informed her of this and she voiced understanding. She states her will come back and take her home. She states they just live right over the [facility]. Home today. DCP- Discharge Planning Updated by [id number]: Gina Ronquillo on 07/05/19 1:[address] Patient Name: JILL LONGORIA Admission Status: ER Accout number: [id number] Admission Date: 07-04-2019 : 1965 Admission Diagnosis: Attending: BEVERLEY MAYO Current LOS: 1 Anticipated DC Date: Planned Disposition: Home Primary Insurance: Discharge Planning Comments: CM met with patient to discuss discharge planning/needs, she is alone in the room. States she is living with her (they are ) at this time at [address] [place] [address] in [facility]. States she will be returning there on discharge. She states she gets her oxygen supplies from [facility]. States she needs a new nebulizer and would like to get it from [facility]. She states she is not happy with [facility], but will leave her oxygen there for now. She states she would like a BSC also. I have called [facility] and will fax order and clinical to [facility] to see if they can provide DME she has asked for. She states she has already applied for help through [facility], but her makes too much money to qualify for private duty help through Medicaid. I provided her the number for [facility] if she needs transportation to and from doctor appointments. Declines need for home health at this time, states "I just need someone to make my bed." will continue to assist with discharge planning/needs. Machining Associate: Gina Ronquillo DCPIA - Discharge Planning Initial Assessment Updated by [email or web address]: Gina Ronquillo on 07/05/19 1:59 pm * Is the patient Alert and Oriented? Yes * How many steps to enter\\exit or inside your home? 2/0 * PCP Dr. Ryan in [place] * Pharmacy [facility] * Preadmission Environment Home with Family * ADLs Partial Dependent * Partial ADLs (Assistance needed) Ambulation Bathing * Equipment Nebulizer Other Oxygen Shower Chair Walker * Other Equipment Portable oxygen * List name and contact numbers for known caregivers / representatives who currently or will assist patient after discharge: Fracisco Longoria - - [phone] Tish Hoang - [phone] * Verbal permission to speak to the caregivers and representatives has been obtained from the patient. Yes * Community resources currently utilized None * Additional services required to return to the preadmission environment? No * Can the patient safely return to the preadmission environment? Yes * Has this patient been hospitalized within the prior 30 days at any hospital? No Coverage Notice Reviewer: [id number] - Gina Ronquillo Notice Issued Date-Time: 07/05/2019 14:16 Notice Type: Patient Choice Letter Notice Delivered To: Patient Relationship to Patient: Self Print Designer Name: Delivery Method: HAND - Hand Delivered Tabitha Days: Prior Verbal Notification: Recipient Understood Notice: Yes Recipient Signature: Yes Med Rec Note Co-signed by Attending: Coverage Notice Comment: ULISES for [facility] for nebulizer and BSC States uses [facility] for oxygen only Last DP export: 07/06/19 12:26 p Patient Name: JILL LONGORIA Page [phone] at 1210 All edits/amendments must be made on the electronic document DICTATION DATE: 07/07/19 1210 THIRD OFFICER: JOHN 07/07/19 1210 RPT#: [id number] DC DATE:07/06/19 STATUS: DIS IN [facility] [address] [place] [place] [address] END OF REPORT
== END 2019-07-06 13:55 | disposition home or self-care (01) | DRG 391 ==
LOC: D.ER 02:00 → D.MS 04:29
PROVIDERS: Family Medicine; Internal Medicine Gastroenterology; ADMIT Internal Medicine Nephrology; ATTEND Internal Medicine Nephrology
PROC: 0DD78ZX Extraction of Stomach, Pylorus, Via Natural or Artificial Opening Endoscopic, Diagnostic (ICD-10-PCS; 2019-07-05)
PROC: 0DD28ZX Extraction of Middle Esophagus, Via Natural or Artificial Opening Endoscopic, Diagnostic (ICD-10-PCS; principal; 2019-07-05 07:00)
DX: K21.0 Gastro-esophageal reflux disease with esophagitis (principal); J96.21 Acute and chronic respiratory failure with hypoxia; J44.1 Chronic obstructive pulmonary disease with (acute) exacerbation; Z99.81 Dependence on supplemental oxygen; E87.6 Hypokalemia; E83.42 Hypomagnesemia; I10 Essential (primary) hypertension; E03.9 Hypothyroidism, unspecified; F41.9 Anxiety disorder, unspecified; K29.70 Gastritis, unspecified, without bleeding; K44.9 Diaphragmatic hernia without obstruction or gangrene; R00.0 Tachycardia, unspecified

== ENCOUNTER 2020-01-17 04:09 | Emergency (ER) | payer OTHER, MEDICAID ==
[~2020-01-17] VITALS: Ht 165.1 cm; Wt 90.9 kg
[~2020-01-17 04:09] MED LIST changes: +BYSTOLIC5 MG PO; +HYDROCODON-ACE1 EA10 PO; +SOMA350 MG; +ZITHROMAX500 MG PO
[2020-01-17 04:11] VITALS: Ht 165.1 cm; Wt 90.9 kg
[2020-01-17] MEDS ORDERED: [UNRECOGNIZED DRUG - OTHER] (04:15)
[2020-01-17 04:44] LABS: BASOPHILS 0.3 % (0-2); EOSINOPHILS 1.4 % (0-7); HEMATOCRIT 37.9 % (36.0-48.0); HEMOGLOBIN 12.4 g/dL (12-16); IMMATURE GRANULOCYTES 0.3 % (0-5); LYMPHOCYTES 19.7 % (15-50); MCH 29.7 pg (26.0-34.0); MCHC 32.7 g/dL (31.0-37.0); MCV 90.9 fL (80.0-100.0); MEAN PLATELET VOLUME 11.8 fL (7.4-10.4); MONOCYTES 8.7 % (2-11); NEUTROPHILS 69.6 % (40-80); RBC 4.17 10x6/uL (4.00-5.40); WBC 6.6 10x3/uL (4.8-10.8)
[2020-01-17 04:48] LABS: PLATELET COUNT 197 10x3/uL (130-400)
[2020-01-17 05:00] LABS: CALC OSMOLALITY 280 mosm/kg (275-300); CALCIUM 8.7 mg/dL (8.5-10.1); CARBON DIOXIDE 33.4 mmol/L (21.0-32.0); CHLORIDE - SERUM 102 mmol/L (98-107); CREATININE - SERUM 0.5 mg/dL (0.6-1.3); GLUCOSE 119 mg/dL (74-106); POTASSIUM - SERUM 3.2 mmol/L (3.5-5.1); SODIUM 141 mmol/L (136-145); UREA NITROGEN 11 mg/dL (7-18); eGFR NON AFRICAN AMERICAN > 90 mL/min (90-120)
[2020-01-17 05:06] LABS: ALKALINE PHOSPHATASE 163 U/L (30-120); ALT (SGPT) 16 U/L (10-68); BILIRUBIN - TOTAL 0.19 mg/dL (0.2-1.3); PROTEIN - SERUM 6.1 g/dL (6.4-8.2)
[2020-01-17] MEDS ORDERED: LEVAQUIN750 MG PO (06:07)
[2020-01-17] MEDS ORDERED: DIFLUCAN200 MG PO (06:07)
[2020-01-17 08:29] VITALS: BP 117/64
== END 2020-01-17 08:30 | disposition home or self-care (01) ==
LOC: D.ER 04:09
PROVIDERS: Emergency Medicine
DX: R06.00 Dyspnea, unspecified (principal); E07.9 Disorder of thyroid, unspecified; I10 Essential (primary) hypertension; I25.2 Old myocardial infarction; J44.9 Chronic obstructive pulmonary disease, unspecified; K21.9 Gastro-esophageal reflux disease without esophagitis; G62.9 Polyneuropathy, unspecified; R55 Syncope and collapse

== ENCOUNTER 2020-03-23 18:31 | Emergency (ER) | payer OTHER, MEDICAID ==
[~2020-03-23] VITALS: Ht 165.1 cm; Wt 90.9 kg
[~2020-03-23 18:31] MED LIST changes: +[UNRECOGNIZED DRUG - OTHER]
[2020-03-23 18:33] VITALS: Ht 165.1 cm; Wt 90.9 kg
[2020-03-23 19:26] LABS: BASOPHILS 0.2 % (0-2); EOSINOPHILS 1.5 % (0-7); HEMOGLOBIN 12.3 g/dL (12-16); IMMATURE GRANULOCYTES 0.2 % (0-5); LYMPHOCYTES 20.8 % (15-50); MCHC 31.5 g/dL (31.0-37.0); MCV 95.1 fL (80.0-100.0); MONOCYTES 7.5 % (2-11); NEUTROPHILS 69.8 % (40-80); PLATELET COUNT 172 10x3/uL (130-400); RDW 12.5 % (11.5-14.5); WBC 5.8 10x3/uL (4.8-10.8)
[2020-03-23 19:36] LABS: CALC OSMOLALITY 282 mosm/kg (275-300); CALCIUM 8.8 mg/dL (8.5-10.1); CARBON DIOXIDE 36.9 mmol/L (21.0-32.0); CHLORIDE - SERUM 102 mmol/L (98-107); CREATININE - SERUM 0.7 mg/dL (0.6-1.3); GLUCOSE 112 mg/dL (74-106); POTASSIUM - SERUM 3.2 mmol/L (3.5-5.1); SODIUM 141 mmol/L (136-145); UREA NITROGEN 15 mg/dL (7-18); eGFR NON AFRICAN AMERICAN > 90 mL/min (90-120)
[2020-03-23 19:51] LABS: ALKALINE PHOSPHATASE 168 U/L (30-120); ALT (SGPT) 23 U/L (10-68); BILIRUBIN - TOTAL 0.23 mg/dL (0.2-1.3); PROTEIN - SERUM 6.3 g/dL (6.4-8.2)
[2020-03-23 19:53] LABS: LIPASE 47 U/L (73-393); TROPONIN-I < 0.017 ng/mL (0.000-0.060)
[2020-03-23] MEDS ORDERED: BENTYL10 MG PO (21:01)
[2020-03-23 22:06] LABS: BILIRUBIN NEGATIVE (NEGATIVE); GLUCOSE NEGATIVE (NEGATIVE); KETONE NEGATIVE (NEGATIVE); NITRITE NEGATIVE (NEGATIVE); UROBILINOGEN NORMAL (NORMAL)
[2020-03-23 22:17] LABS: UDS - AMPHET NEGATIVE QUAL (NEGATIVE); UDS - BARB NEGATIVE QUAL (NEGATIVE); UDS - BENZO POSITIVE QUAL (NEGATIVE); UDS - COCAINE NEGATIVE QUAL (NEGATIVE); UDS - OPIATE POSITIVE QUAL (NEGATIVE); UDS - PCP NEGATIVE QUAL (NEGATIVE); UDS - THC NEGATIVE QUAL (NEGATIVE)
[2020-03-23 22:31] VITALS: BP 121/79
== END 2020-03-23 22:32 | disposition home or self-care (01) ==
LOC: D.ER 18:31
PROVIDERS: Family Medicine
DX: R10.9 Unspecified abdominal pain (principal); G62.9 Polyneuropathy, unspecified; I11.0 Hypertensive heart disease with heart failure; I50.9 Heart failure, unspecified; E07.9 Disorder of thyroid, unspecified; J44.9 Chronic obstructive pulmonary disease, unspecified; K21.9 Gastro-esophageal reflux disease without esophagitis; I25.2 Old myocardial infarction; R11.0 Nausea